=== PATIENT | female | born 1995 | race Caucasian/White ===

== ENCOUNTER 2018-12-21 02:09 | Inpatient (IN) | payer OTHER, MEDICAID ==
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
[2018-12-21 03:03] LABS: ABS Basophils 0 10^3/ul (0-0.2); ABS Eosinophils 0 10^3/ul (0-0.6); ABS Lymphocytes 1.2 10^3/ul (1.0-4.8); ABS Neutrophils 11.6 10^3/ul (1.5-7.7); ABS Nucleated RBC 0 10^3/ul; Eosinophil % 0.1 %; Hematocrit 40 % (35-47); Hemoglobin 13.4 g/dl (12.0-16.0); Lymphocyte % 8.8 %; Mean Corpuscular HGB Conc 34 g/dl (31-36); Mean Corpuscular Hemoglobin 29 pg (27-31); Mean Corpuscular Volume 88 fL (80-97); Mean Platelet Volume 7.1 fL (7.4-10.4); Nucleated Red Blood Cells % 0; Platelet Count 352 10^3/ul (150-450); Red Blood Count 4.58 10^6/ul (4.00-5.40); Red Cell Distribution Width 13 % (10.5-15); White Blood Count 13.9 10^3/ul (3.5-10.8)
[2018-12-21 03:26] LABS: ALT 19 U/L (7-52); AST 18 U/L (13-39); Albumin 4.3 g/dL (3.2-5.2); Albumin/Globulin Ratio 1.5 (1-3); Alkaline Phosphatase 54 U/L (34-104); Anion Gap 7 mmol/L (2-11); BUN/Creatinine Ratio 8.3 (8-20); Blood Urea Nitrogen 7 mg/dL (6-24); CO2 Carbon Dioxide 24 mmol/L (22-32); Calcium 9.1 mg/dL (8.6-10.3); Chloride 105 mmol/L (101-111); Creatine Kinase 67 U/L (10-223); EGFR African American 103.6 (>60); EGFR Non-African American 85.6 (>60); Globulin 2.9 g/dL (2-4); Glucose 108 mg/dL (70-100); Potassium 3.8 mmol/L (3.5-5.0); Sodium 136 mmol/L (135-145); Total Protein 7.2 g/dL (6.4-8.9)
[2018-12-21 03:31] LABS: HCG Pregnancy < 0.60 mIU/mL
[2018-12-21 03:34] LABS: Acetaminophen < 15 mcg/mL; Alcohol < 10 mg/dL (<10); Salicylate < 2.50 mg/dL (<30)
[2018-12-21 03:42] LABS: Barbiturates Urine Screen None Detected (None Detect); Benzodiazepine Urine Screen None Detected (None Detect); Urine Cannabinoids Screen None Detected (None Detect)
[2018-12-21 03:50] LABS: TSH (Thyroid Stimulating Horm) 1.58 mcIU/mL (0.34-5.60)
[2018-12-21 04:26] LABS: Urine Appearance Clear; Urine Bilirubin Negative (Negative); Urine Blood Negative (Negative); Urine Color Colorless; Urine Glucose Negative (Negative); Urine Ketones Negative (Negative); Urine Nitrite Negative (Negative); Urine Protein Negative (Negative); Urine Specific Gravity 1.001 (1.010-1.030); Urine Urobilinogen Negative (Negative)
[2018-12-21] MEDS ORDERED: Al Hydrox/Mg Hydrox/Simet LIQ* 30 ML UDC PO PRN (09:49)
[2018-12-21] MEDS: risperiDONE TAB* 1 MG PO SCH ×2 (11:04→20:24)
[2018-12-21] MEDS: diPHENhydraMINE PO* 50 MG PO PRN ×2 (13:06→20:24)
[2018-12-21] MEDS: Haloperidol TAB* 5 MG PO PRN ×2 (13:06→20:24)
[2018-12-21] MEDS: LORazepam TAB(*) 1 MG PO PRN ×2 (13:07→20:24)
--- NOTE | 2018-12-21 14:02 | ED ---
Progress - Progress Note Progress Note: Pt is a signout from Dr. Kinsey pending disposition. The pt has been diagnosed with psychosis, not otherwise specified. Course/Dx - Course Course Of Treatment: The pt is a signout from Dr. Kinsey pending dx. Her dx is psychosis, not otherwise specified. She will be sent home pending follow up. - Diagnoses Provider Diagnoses: Psychosis Discharge - Sign-Out/Discharge Documenting (check all that apply): Patient Departure - Discharge Plan Condition: Stable [place] [place] Attestation Statements Document Initiated by Scribe: Yes Documenting Scribe: Anusha Mckinney Provider For Whom Rebekaibe is Documenting (Include Credential): Shane Moyer MD. Scribe Attestation: Anusha Avelar, scribed for Shane Moyer MD. on 12/21/18 at 1404. Status of Scribe Document: Ready
[2018-12-22] MEDS: LORazepam TAB(*) 1 MG PO PRN ×2 (05:53→11:56)
[2018-12-22] MEDS: Haloperidol TAB* 5 MG PO PRN ×2 (05:53→11:55)
[2018-12-22] MEDS: risperiDONE TAB* 1 MG PO SCH ×2 (09:03→20:14)
[2018-12-22] MEDS: Acetaminophen TAB* 325 MG PO PRN (09:24)
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
[2018-12-22] MEDS: diPHENhydraMINE PO* 50 MG PO PRN ×2 (11:55→18:44)
[2018-12-22] MEDS ORDERED: risperiDONE-M * 1 MG TAB.ORADIS PO ONE (12:33)
[2018-12-22] MEDS ORDERED: Diazepam TAB(*) 5 MG PO ONE (12:36)
[2018-12-22] MEDS ORDERED: risperiDONE-M * 1 MG TAB.ORADIS ONE (12:37)
[2018-12-22] MEDS ORDERED: Diazepam TAB(*) 5 MG ONE (12:42)
[2018-12-22] MEDS ORDERED: Diazepam TAB(*) 5 MG PO PRN ×3 (14:41→21:00)
[2018-12-22] MEDS: Diazepam TAB(*) 5 MG PO PRN (20:14)
[2018-12-22] MEDS ORDERED: LORazepam INJ* 2 MG/ML 1 ML VIAL ONE (21:09)
[2018-12-22] MEDS ORDERED: LORazepam INJ* 2 MG/ML 1 ML VIAL IM ONE (21:17)
[2018-12-23] MEDS: diPHENhydraMINE PO* 50 MG PO PRN ×3 (05:15→18:50)
[2018-12-23] MEDS: Haloperidol TAB* 5 MG PO PRN ×3 (05:15→18:49)
[2018-12-23 07:36] LABS: HDL Cholesterol 47.4 mg/dL
[2018-12-23] MEDS: risperiDONE TAB* 1 MG PO SCH ×3 (08:03→21:40)
[2018-12-23] MEDS: Diazepam TAB(*) 5 MG PO PRN ×3 (08:03→23:34)
[2018-12-23] MEDS ORDERED: chlorproMAZINE TAB* 25 MG ONE (09:50)
[2018-12-23 11:00] LABS: Hepatitis C Antibody Nonreactive (Nonreactive)
[2018-12-23] MEDS ORDERED: chlorproMAZINE TAB* 25 MG PO ONE (12:23)
[2018-12-23] MEDS ORDERED: Diazepam TAB(*) 5 MG PO ONE (15:05)
--- NOTE | 2018-12-23 15:16 | PN ---
Subjective - Subjective Date of Service: 12/23/18 Service Type: 08515 Hosp care 35 min high complexity Subjective: The patient was seen in the quiet room screaming do not touch me. Last night she naked and masturbating in the green room. She was seen walking around the unit screaming. Her sister visited yesterday and provided sound collateral history. She has been compliant with medications. It appears that she is responding to internal stimuli. She was unable to participate in encounter. Objective - Appearance Appearance: Healthy Appearing Dysmorphic Features: No Grooming: Disheveled - Behavior Psychomotor Activities: Abnormal-Increased Exhibits Abnormal Movement: No - Attitude and Relatedness Attitude and Relatedness: Regressed Eye Contact: Poor - Speech Quality: Unpressured Latencies: Short Quantity: Copious - Mood Patient's Decription of Mood: "Irritable" - Affect Observed Affect: Euphoric Affect Consistent with: Euphoria - Thought Process Patient's Thought Process: Disorganized Thought Content: Yes Paranoid Ideation, No Passive Wish, No Suicidal Planning, No Homicidal Ideation - Sensorium Experiencing Hallucinations: Yes Type of Hallucinations: Visual: Yes, Auditory: Yes, Command: Yes - Level of Consciousness Level of Consciousness: Agitated Orientation: Yes Intact, Yes Orientated to Time, Yes Orientated to Place, Yes Orientated to Person - Impulse Control Impulse Control: Impaired - Insight and Judgement Insight and Judgement: Impaired - Group Participation Particating in Group Activities: No - Medication Management Medication Management Adherence: Yes Assessment - Assessment Merits Inpatient Hospitalization: For Immediate Safety Clinical Impression: 23 year old female with a history of schizoaffective disorder, presents with recent LSD intoxication and acute psychosis Plan - Plan Treatment Plan: Name: WAQAS BROWER Birthdate: 1995 [id number] # 9.39 The patient requires inpatient admission at this time to assure safety, receive treatment and work toward stabilization. #Constant observation. # Obtain baseline from collateral information once release is signed. # HIV, Syphilis, Hepatitis and HSV AB insignificant # Dark room with minimal stimuli #Continue to monitor vital signs. Patient is hyperactive and pacing around unit Offered Substance Abuse resources #Goals before discharge include: Medication compliance. Acetaminophen (Tylenol Tab*) 650 mg PO Q4H PRN PRN Reason: for pain; or Temp >101 F Last Admin: 12/22/18 09:24 Dose: 650 mg Al Hydrox/Mg Hydrox/Simethicone (Maalox Plus*) 30 ml PO Q4H PRN PRN Reason: INDIGESTION Diazepam (Valium Tab(*)) 5 mg PO Q8H PRN PRN Reason: ANXIETY Last Admin: 12/23/18 08:03 Dose: 5 mg Diazepam (Valium Tab(*)) 5 mg PO ONCE ONE Stop: 12/23/18 15:06 Diphenhydramine HCl (Benadryl Po*) 50 mg PO Q6H PRN PRN Reason: AGITATION Last Admin: 12/23/18 11:30 Dose: 50 mg Haloperidol (Haldol Tab*) 5 mg PO Q6H PRN PRN Reason: AGITATION Last Admin: 12/23/18 11:29 Dose: 5 mg Risperidone (Risperdal*) 2 mg PO BID [facility] Last Admin: 12/23/18 08:03 Dose: 2 mg Sodium 136 mmol/L (135-145) 12/21/18 02:51 Potassium 3.8 mmol/L (3.5-5.0) 12/21/18 02:51 BUN 7 mg/dL (6-24) 12/21/18 02:51 Creatinine 0.84 mg/dL (0.51-0.95) 12/21/18 02:51 Hemoglobin A1c 5.4 % (4.0-5.6) 12/23/18 06:45 Calcium 9.1 mg/dL (8.6-10.3) 12/21/18 02:51 AST 18 U/L (13-39) 12/21/18 02:51 ALT 19 U/L (7-52) 12/21/18 02:51 Triglycerides 78 mg/dL 12/23/18 06:45 Cholesterol 162 mg/dL 12/23/18 06:45 LDL Cholesterol 99 mg/dL 12/23/18 06:45 Vital Signs Temp Pulse Resp BP Pulse Ox 100.0 F 142 16 118/86 99 12/21/18 12:53 12/23/18 15:12 12/23/18 13:48 12/23/18 15:12 12/21/18 12:53 Continued Medication Management: Continue Outpt Medication Medications: Current Medications Acetaminophen (Tylenol Tab*) 650 mg PO Q4H PRN PRN Reason: for pain; or Temp >101 F Last Admin: 12/22/18 09:24 Dose: 650 mg Al Hydrox/Mg Hydrox/Simethicone (Maalox Plus*) 30 ml PO Q4H PRN PRN Reason: INDIGESTION Diazepam (Valium Tab(*)) 5 mg PO Q8H PRN PRN Reason: ANXIETY Last Admin: 12/23/18 08:03 Dose: 5 mg Diazepam (Valium Tab(*)) 5 mg PO ONCE ONE Stop: 12/23/18 15:06 Diphenhydramine HCl (Benadryl Po*) 50 mg PO Q6H PRN PRN Reason: AGITATION Last Admin: 12/23/18 11:30 Dose: 50 mg Haloperidol (Haldol Tab*) 5 mg PO Q6H PRN PRN Reason: AGITATION Last Admin: 12/23/18 11:29 Dose: 5 mg Risperidone (Risperdal*) 2 mg PO BID JONATHAN Last Admin: 12/23/18 08:03 Dose: 2 mg - Discharge Plan Discharge Plan: Inpatient Hospitalization
[2018-12-24] MEDS: Haloperidol TAB* 5 MG PO PRN ×4 (01:11→15:30)
[2018-12-24] MEDS: diPHENhydraMINE PO* 50 MG PO PRN ×4 (01:12→15:30)
[2018-12-24] MEDS ORDERED: Haloperidol TAB* 5 MG PO ONE (02:14)
[2018-12-24] MEDS ORDERED: diPHENhydraMINE PO* 50 MG PO ONE (02:14)
[2018-12-24] MEDS: Diazepam TAB(*) 5 MG PO PRN (07:37)
[2018-12-24] MEDS: risperiDONE TAB* 1 MG PO SCH ×4 (07:37→19:21)
[2018-12-24] MEDS ORDERED: risperiDONE TAB* 1 MG PO ONE (10:30)
[2018-12-24] MEDS ORDERED: risperiDONE TAB* 1 MG ONE (10:42)
[2018-12-24] MEDS ORDERED: chlorproMAZINE TAB* 50 MG ONE (11:22)
--- NOTE | 2018-12-24 14:52 | PN ---
Subjective - Subjective Date of Service: 12/24/18 Service Type: 14677 Hosp care 35 min high complexity Subjective: CC:" Leave me alone" The patient was seen in the hallway yelling "do not touch me". She was placed in the quiet room. She has been compliant with medications. It appears that she is responding to internal stimuli. She was unable to participate in encounter in a meaningful. No side effects from medications. Objective - Appearance Dysmorphic Features: No Hygiene: Dirty Grooming: Disheveled - Behavior Psychomotor Activities: Abnormal-Increased - Attitude and Relatedness Attitude and Relatedness: Psychotically Related Eye Contact: Poor - Speech Quality: Unpressured Latencies: Long Quantity: Terse - Mood Patient's Decription of Mood: "Sad" - Affect Observed Affect: Labile Affect Consistent with: Dysphoria - Thought Process Patient's Thought Process: Disorganized Thought Content: Yes Paranoid Ideation, No Passive Wish, No Suicidal Planning, No Homicidal Ideation - Sensorium Experiencing Hallucinations: Yes Type of Hallucinations: Visual: Yes, Auditory: Yes, Command: Yes - Level of Consciousness Level of Consciousness: Agitated Orientation: Yes Intact, Yes Orientated to Time, Yes Orientated to Place, Yes Orientated to Person - Impulse Control Impulse Control: Impaired - Insight and Judgement Insight and Judgement: Impaired - Group Participation Particating in Group Activities: No - Medication Management Medication Management Adherence: Yes Assessment - Assessment Clinical Impression: 23 year old female with a history of schizoaffective disorder, presents with recent LSD intoxication and acute psychosis Plan - Plan Treatment Plan: Name: WAQAS BROWER Birthdate: 1995 [id number] # 9.39 The patient requires inpatient admission at this time to assure safety, receive treatment and work toward stabilization. #Constant observation # Obtain baseline from collateral information once release is signed. # Dark room with minimal stimuli #Continue to monitor vital signs. Patient is hyperactive and pacing around unit Offered Substance Abuse resources #Goals before discharge include: Medication compliance. Acetaminophen (Tylenol Tab*) 650 mg PO Q4H PRN PRN Reason: for pain; or Temp >101 F Last Admin: 12/22/18 09:24 Dose: 650 mg Al Hydrox/Mg Hydrox/Simethicone (Maalox Plus*) 30 ml PO Q4H PRN PRN Reason: INDIGESTION Diazepam (Valium Tab(*)) 5 mg PO Q8H PRN PRN Reason: ANXIETY Last Admin: 12/23/18 08:03 Dose: 5 mg Diazepam (Valium Tab(*)) 5 mg PO ONCE ONE Stop: 12/23/18 15:06 Diphenhydramine HCl (Benadryl Po*) 50 mg PO Q6H PRN PRN Reason: AGITATION Last Admin: 12/23/18 11:30 Dose: 50 mg Haloperidol (Haldol Tab*) 5 mg PO Q6H PRN PRN Reason: AGITATION Last Admin: 12/23/18 11:29 Dose: 5 mg Risperidone (Risperdal*) 2 mg PO BID JONATHAN Last Admin: 12/23/18 08:03 Dose: 2 mg Sodium 136 mmol/L (135-145) 12/21/18 02:51 Potassium 3.8 mmol/L (3.5-5.0) 12/21/18 02:51 BUN 7 mg/dL (6-24) 12/21/18 02:51 Creatinine 0.84 mg/dL (0.51-0.95) 12/21/18 02:51 Hemoglobin A1c 5.4 % (4.0-5.6) 12/23/18 06:45 Calcium 9.1 mg/dL (8.6-10.3) 12/21/18 02:51 AST 18 U/L (13-39) 12/21/18 02:51 ALT 19 U/L (7-52) 12/21/18 02:51 Triglycerides 78 mg/dL 12/23/18 06:45 Cholesterol 162 mg/dL 12/23/18 06:45 LDL Cholesterol 99 mg/dL 12/23/18 06:45 Vital Signs Temp Pulse Resp BP Pulse Ox 100.0 F 142 16 118/86 99 12/21/18 12:53 12/23/18 15:12 12/23/18 13:48 12/23/18 15:12 12/21/18 12:53 Continued Medication Management: Continue Outpt Medication Medications: Current Medications Acetaminophen (Tylenol Tab*) 650 mg PO Q4H PRN PRN Reason: for pain; or Temp >101 F Last Admin: 12/22/18 09:24 Dose: 650 mg Al Hydrox/Mg Hydrox/Simethicone (Maalox Plus*) 30 ml PO Q4H PRN PRN Reason: INDIGESTION Diphenhydramine HCl (Benadryl Po*) 50 mg PO Q6H PRN PRN Reason: AGITATION Last Admin: 12/24/18 08:05 Dose: 50 mg Haloperidol (Haldol Tab*) 5 mg PO Q6H PRN PRN Reason: AGITATION Last Admin: 12/24/18 08:05 Dose: 5 mg Lorazepam (Ativan Tab(*)) 1 mg PO Q6H PRN PRN Reason: ANXIETY Risperidone (Risperdal*) 3 mg PO BID [facility] Last Admin: 12/24/18 10:27 Dose: Not Given - Discharge Plan Discharge Plan: Inpatient Hospitalization
[2018-12-24 15:12] LABS: Herpes Simplex Virus I IgG AB Positive (Negative); Herpes Simplex Virus II IgG AB Negative (Negative)
[2018-12-24] MEDS ORDERED: Zolpidem TAB* 5 MG PO ONE (15:23)
[2018-12-24] MEDS: LORazepam TAB(*) 1 MG PO PRN (15:30)
[2018-12-24] MEDS ORDERED: diPHENhydraMINE IV* 50 MG/ML 1 ml VIAL (BENADRYL) IM ONE (23:23)
[2018-12-24] MEDS ORDERED: LORazepam INJ* 2 MG/ML 1 ML VIAL IM ONE (23:23)
[2018-12-24] MEDS ORDERED: Haloperidol INJ IV/IM* 5 MG/ML AMP IM ONE (23:23)
[2018-12-24] MEDS ORDERED: diPHENhydraMINE IV* 50 MG/ML 1 ml VIAL (BENADRYL) ONE (23:26)
[2018-12-24] MEDS ORDERED: Haloperidol INJ IV/IM* 5 MG/ML AMP ONE (23:26)
[2018-12-25] MEDS: risperiDONE TAB* 1 MG PO SCH ×2 (07:58→19:18)
[2018-12-25] MEDS: diPHENhydraMINE PO* 50 MG PO PRN ×2 (10:02→23:19)
[2018-12-25] MEDS: Haloperidol TAB* 5 MG PO PRN ×2 (10:02→23:19)
[2018-12-25] MEDS: LORazepam TAB(*) 1 MG PO PRN ×2 (10:03→23:20)
--- NOTE | 2018-12-25 11:28 | PN ---
Subjective - Subjective Date of Service: 12/25/18 Service Type: [id number] Hosp care 35 min high complexity Subjective: CC:" Is the earth gone? " The patient was seen in the hallway [facility]. She was observed at the nursing station. She has been mostly compliant with medications. It appears that she is responding to internal stimuli. Patient continues to be unable to participate in encounter in a meaningful way. No side effects from medications. Objective - Appearance Appearance: Thin Framed Dysmorphic Features: No Hygiene: Dirty Grooming: Disheveled - Behavior Psychomotor Activities: Abnormal-Increased Exhibits Abnormal Movement: No - Attitude and Relatedness Attitude and Relatedness: Child Like Eye Contact: Poor - Speech Quality: Unpressured Latencies: Long Quantity: Terse - Mood Patient's Decription of Mood: "Upset" - Affect Observed Affect: Labile Affect Consistent with: Dysphoria - Thought Process Patient's Thought Process: Incoherent Thought Content: Yes Paranoid Ideation, No Passive Wish, No Suicidal Planning, No Homicidal Ideation - Sensorium Experiencing Hallucinations: Yes Type of Hallucinations: Visual: Yes, Auditory: Yes, Command: Yes - Level of Consciousness Level of Consciousness: Obtunded Orientation: No Intact, No Orientated to Time, No Orientated to Place, No Orientated to Person - Impulse Control Impulse Control: Impaired - Insight and Judgement Insight and Judgement: Impaired - Group Participation Particating in Group Activities: No - Medication Management Medication Management Adherence: Partial Assessment - Assessment Clinical Impression: 23 year old female with a history of schizoaffective disorder, presents with recent LSD intoxication and acute psychosis Plan - Plan Treatment Plan: Name: WAQAS BROWER Birthdate: 1995 [id number] # 9.39 The patient requires inpatient admission at this time to assure safety, receive treatment and work toward stabilization. #Constant observation # Obtain baseline from collateral information once release is signed. # Dark room with minimal stimuli #Continue to monitor vital signs. Offered Substance Abuse resources #Start to taper down benzos as patient is showing disinhibited effect. Today patient shows a increased capacity to be redirected. #Goals before discharge include: decrease psychosis and maintain safety Sodium 136 mmol/L (135-145) 12/21/18 02:51 Potassium 3.8 mmol/L (3.5-5.0) 12/21/18 02:51 BUN 7 mg/dL (6-24) 12/21/18 02:51 Creatinine 0.84 mg/dL (0.51-0.95) 12/21/18 02:51 Hemoglobin A1c 5.4 % (4.0-5.6) 12/23/18 06:45 Calcium 9.1 mg/dL (8.6-10.3) 12/21/18 02:51 AST 18 U/L (13-39) 12/21/18 02:51 ALT 19 U/L (7-52) 12/21/18 02:51 Triglycerides 78 mg/dL 12/23/18 06:45 Cholesterol 162 mg/dL 12/23/18 06:45 LDL Cholesterol 99 mg/dL 12/23/18 06:45 Vital Signs Temp Pulse Resp BP Pulse Ox 100.0 F 142 16 118/86 99 12/21/18 12:53 12/23/18 15:12 12/25/18 10:03 12/23/18 15:12 12/21/18 12:53 Acetaminophen (Tylenol Tab*) 650 mg PO Q4H PRN PRN Reason: for pain; or Temp >101 F Last Admin: 12/22/18 09:24 Dose: 650 mg Al Hydrox/Mg Hydrox/Simethicone (Maalox Plus*) 30 ml PO Q4H PRN PRN Reason: INDIGESTION Diphenhydramine HCl (Benadryl Po*) 50 mg PO Q6H PRN PRN Reason: AGITATION Last Admin: 12/25/18 10:02 Dose: 50 mg Haloperidol (Haldol Tab*) 5 mg PO Q6H PRN PRN Reason: AGITATION Last Admin: 12/25/18 10:02 Dose: 5 mg Lorazepam (Ativan Tab(*)) 1 mg PO Q6H PRN PRN Reason: ANXIETY Last Admin: 12/25/18 10:03 Dose: 1 mg Risperidone (Risperdal*) 3 mg PO BID JONATHAN Last Admin: 12/25/18 07:58 Dose: 2 mg Continued Medication Management: Start Medication Medications: Current Medications Acetaminophen (Tylenol Tab*) 650 mg PO Q4H PRN PRN Reason: for pain; or Temp >101 F Last Admin: 12/22/18 09:24 Dose: 650 mg Al Hydrox/Mg Hydrox/Simethicone (Maalox Plus*) 30 ml PO Q4H PRN PRN Reason: INDIGESTION Diphenhydramine HCl (Benadryl Po*) 50 mg PO Q6H PRN PRN Reason: AGITATION Last Admin: 12/25/18 10:02 Dose: 50 mg Haloperidol (Haldol Tab*) 5 mg PO Q6H PRN PRN Reason: AGITATION Last Admin: 12/25/18 10:02 Dose: 5 mg Lorazepam (Ativan Tab(*)) 1 mg PO Q6H PRN PRN Reason: ANXIETY Last Admin: 12/25/18 10:03 Dose: 1 mg Risperidone (Risperdal*) 3 mg PO BID JONATHAN Last Admin: 12/25/18 07:58 Dose: 2 mg - Discharge Plan Discharge Plan: Inpatient Hospitalization
[2018-12-25] MEDS ORDERED: Haloperidol INJ IV/IM* 5 MG/ML AMP ONE (16:07)
[2018-12-25] MEDS ORDERED: LORazepam INJ* 2 MG/ML 1 ML VIAL ONE (16:07)
[2018-12-25] MEDS ORDERED: diPHENhydraMINE IV* 50 MG/ML 1 ml VIAL (BENADRYL) ONE (16:08)
[2018-12-25] MEDS ORDERED: diPHENhydraMINE IV* 50 MG/ML 1 ml VIAL (BENADRYL) IM ONE (16:10)
[2018-12-25] MEDS ORDERED: LORazepam INJ* 2 MG/ML 1 ML VIAL IM ONE (16:10)
[2018-12-25] MEDS ORDERED: Haloperidol INJ IV/IM* 5 MG/ML AMP IM ONE (16:10)
[2018-12-26] MEDS: risperiDONE TAB* 1 MG PO SCH ×2 (08:15→21:22)
[2018-12-26] MEDS: LORazepam TAB(*) 1 MG PO PRN (08:46)
[2018-12-26] MEDS: diPHENhydraMINE PO* 50 MG PO PRN ×3 (08:47→21:23)
[2018-12-26] MEDS: Haloperidol TAB* 5 MG PO PRN ×3 (09:50→21:22)
--- NOTE | 2018-12-26 17:38 | PN ---
Subjective - Subjective Date of Service: 12/26/18 Service Type: [id number] Hosp care 25 min moderate complexity Subjective: Waqas continues to disorganized in her thoughts and behaviors. [facility] Stands by the nurses' station or paces around internally preoccupied and responding to internal stimuli. Over all an unreliable historian. Objective - Appearance Appearance: Healthy Appearing, Thin Framed Dysmorphic Features: No Hygiene: Mal-odorous Grooming: Disheveled - Behavior Psychomotor Activities: Abnormal-Increased Exhibits Abnormal Movement: No - Attitude and Relatedness Attitude and Relatedness: Psychotically Related Eye Contact: Fair - Speech Quality: Unpressured Latencies: Long Quantity: Terse - Mood Patient's Decription of Mood: "Upset" - Affect Observed Affect: Constricted Affect Consistent with: Dysphoria - Thought Process Patient's Thought Process: Disorganized, Loose Associations, Tangential, Impoverished Thought Content: No Passive Wish, No Suicidal Planning, No Homicidal Ideation, No Paranoid Ideation - Sensorium Experiencing Hallucinations: Yes Type of Hallucinations: Visual: No, Auditory: No, Command: Yes - Level of Consciousness Level of Consciousness: Alert Orientation: No Intact, No Orientated to Time, No Orientated to Place, No Orientated to Person - Impulse Control Impulse Control: Impaired - Insight and Judgement Insight and Judgement: Impaired - Group Participation Particating in Group Activities: No - Medication Management Medication Management Adherence: Yes Assessment - Assessment Merits Inpatient Hospitalization: For Immediate Safety, For Stabilization, Pending Safe DC Plan Clinical Impression: 23 year old female with a history of schizoaffective disorder, presents with recent LSD intoxication and acute psychosis Plan - Plan Treatment Plan: Name: WAQAS BROWER Birthdate: 1995 [id number] # 9.39 The patient requires inpatient admission at this time to assure safety, receive treatment and work toward stabilization. #Constant observation # Obtain baseline from collateral information once release is signed. # Dark room with minimal stimuli #Continue to monitor vital signs. Offered Substance Abuse resources #Start to taper down benzos as patient is showing disinhibited effect. Today patient shows a increased capacity to be redirected. #Goals before discharge include: decrease psychosis and maintain safety Sodium 136 mmol/L (135-145) 12/21/18 02:51 Potassium 3.8 mmol/L (3.5-5.0) 12/21/18 02:51 BUN 7 mg/dL (6-24) 12/21/18 02:51 Creatinine 0.84 mg/dL (0.51-0.95) 12/21/18 02:51 Hemoglobin A1c 5.4 % (4.0-5.6) 12/23/18 06:45 Calcium 9.1 mg/dL (8.6-10.3) 12/21/18 02:51 AST 18 U/L (13-39) 12/21/18 02:51 ALT 19 U/L (7-52) 12/21/18 02:51 Triglycerides 78 mg/dL 12/23/18 06:45 Cholesterol 162 mg/dL 12/23/18 06:45 LDL Cholesterol 99 mg/dL 12/23/18 06:45 Vital Signs Temp Pulse Resp BP Pulse Ox 100.0 F 142 16 118/86 99 12/21/18 12:53 12/23/18 15:12 12/25/18 10:03 12/23/18 15:12 12/21/18 12:53 Acetaminophen (Tylenol Tab*) 650 mg PO Q4H PRN PRN Reason: for pain; or Temp >101 F Last Admin: 12/22/18 09:24 Dose: 650 mg Al Hydrox/Mg Hydrox/Simethicone (Maalox Plus*) 30 ml PO Q4H PRN PRN Reason: INDIGESTION Diphenhydramine HCl (Benadryl Po*) 50 mg PO Q6H PRN PRN Reason: AGITATION Last Admin: 12/25/18 10:02 Dose: 50 mg Haloperidol (Haldol Tab*) 5 mg PO Q6H PRN PRN Reason: AGITATION Last Admin: 12/25/18 10:02 Dose: 5 mg Lorazepam (Ativan Tab(*)) 1 mg PO Q6H PRN PRN Reason: ANXIETY Last Admin: 12/25/18 10:03 Dose: 1 mg Risperidone (Risperdal*) 3 mg PO BID JONATHAN Last Admin: 12/25/18 07:58 Dose: 2 mg Continued Medication Management: Continue Outpt Medication Medications: Current Medications Acetaminophen (Tylenol Tab*) 650 mg PO Q4H PRN PRN Reason: for pain; or Temp >101 F Last Admin: 12/22/18 09:24 Dose: 650 mg Al Hydrox/Mg Hydrox/Simethicone (Maalox Plus*) 30 ml PO Q4H PRN PRN Reason: INDIGESTION Diphenhydramine HCl (Benadryl Po*) 50 mg PO Q6H PRN PRN Reason: AGITATION Last Admin: 12/26/18 15:02 Dose: 50 mg Haloperidol (Haldol Tab*) 5 mg PO Q6H PRN PRN Reason: AGITATION Last Admin: 12/26/18 15:02 Dose: 5 mg Lorazepam (Ativan Tab(*)) 1 mg PO Q6H PRN PRN Reason: ANXIETY Last Admin: 12/26/18 08:46 Dose: 1 mg Risperidone (Risperdal*) 3 mg PO BID JONATHAN Last Admin: 12/26/18 08:15 Dose: 3 mg - Discharge Plan Discharge Plan: Outpatient Follow Up Outpatient Program: [facility]
[2018-12-26] MEDS ORDERED: Magic Mouth Was-BEN/MAAL/LIDO SWISH SPIT PRN (18:20)
[2018-12-27] MEDS: diPHENhydraMINE IV* 50 MG/ML 1 ml VIAL (BENADRYL) ONE ×2 (07:00→12:49)
[2018-12-27] MEDS: Haloperidol INJ IV/IM* 5 MG/ML AMP ONE ×2 (07:00→12:50)
[2018-12-27] MEDS: Haloperidol TAB* 5 MG PO PRN (10:05)
[2018-12-27] MEDS: diPHENhydraMINE PO* 50 MG PO PRN (10:05)
[2018-12-27] MEDS: risperiDONE TAB* 1 MG PO SCH ×3 (10:27→20:09)
[2018-12-27] MEDS: LORazepam TAB(*) 1 MG PO PRN (11:37)
[2018-12-27] MEDS ORDERED: chlorproMAZINE INJ* 25 MG/ML 2 ML (50 MG) IM ONE (12:00)
[2018-12-27] MEDS ORDERED: chlorproMAZINE TAB* 50 MG ONE (15:19)
[2018-12-27] MEDS ORDERED: chlorproMAZINE TAB* 50 MG PO PRN (15:21)
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
[2018-12-28] MEDS: risperiDONE TAB* 1 MG PO SCH ×2 (21:20→21:21)
[2018-12-29] MEDS: Acetaminophen TAB* 325 MG PO PRN (04:10)
[2018-12-29] MEDS: LORazepam TAB(*) 1 MG PO PRN (10:26)
[2018-12-29] MEDS: Haloperidol TAB* 5 MG PO PRN (10:27)
--- NOTE | 2018-12-29 13:00 | PN ---
Subjective - Subjective Date of Service: 12/29/18 Service Type: 54824 Hosp care 35 min high complexity Subjective: Per nursing report patient has been disorganized and yelling in the hallways . CC:" Hi " Patient was seen in the morning eating breakfast. She was unable to participate in the interview in a meaningful way. Per staff she slept 4 hours and has been attention seeking. No side effects from medications. Objective - Appearance Appearance: Healthy Appearing Dysmorphic Features: No Hygiene: Dirty Grooming: Disheveled - Behavior Psychomotor Activities: Abnormal-Increased Exhibits Abnormal Movement: No - Attitude and Relatedness Attitude and Relatedness: Child Like Eye Contact: Fair - Speech Quality: Unpressured Latencies: Long Quantity: Terse - Mood Patient's Decription of Mood: "Irritable" - Affect Observed Affect: Tense Affect Consistent with: Dysphoria - Thought Process Patient's Thought Process: Disorganized Thought Content: Yes Paranoid Ideation, No Passive Wish, No Suicidal Planning, No Homicidal Ideation - Sensorium Experiencing Hallucinations: Yes Type of Hallucinations: Visual: Yes, Auditory: Yes, Command: No - Level of Consciousness Level of Consciousness: Agitated Orientation: No Intact, No Orientated to Time, No Orientated to Place, No Orientated to Person - Impulse Control Impulse Control: Impaired - Insight and Judgement Insight and Judgement: Impaired - Group Participation Particating in Group Activities: No - Medication Management Medication Management Adherence: Partial Assessment - Assessment Clinical Impression: 23 year old female with a history of schizoaffective disorder, presents with recent LSD intoxication and acute psychosis Plan - Plan Treatment Plan: Name: WAQAS BROWER Birthdate: 1995 [id number] # 9.39 The patient requires inpatient admission at this time to assure safety, receive treatment and work toward stabilization. #Q15 minute observation # Dark room with minimal stimuli # Decrease risperdal to 2mg BID #Awaiting Retention hearing court date #Limit use of Benadryl and Thorazine to minimize anti- cholinergic load and if possible limit amount of benzodiazepines used. # Use Haldol and if needed ativan for PRNS #HSV1 positive nonspecific curbside consult to medicine was made and suggested outpatient follow up #EEG ordered once patient is able engage in procedure #Goals before discharge include: decrease psychosis and maintain safety Sodium 136 mmol/L (135-145) 12/21/18 02:51 Potassium 3.8 mmol/L (3.5-5.0) 12/21/18 02:51 BUN 7 mg/dL (6-24) 12/21/18 02:51 Creatinine 0.84 mg/dL (0.51-0.95) 12/21/18 02:51 Hemoglobin A1c 5.4 % (4.0-5.6) 12/23/18 06:45 Calcium 9.1 mg/dL (8.6-10.3) 12/21/18 02:51 AST 18 U/L (13-39) 12/21/18 02:51 ALT 19 U/L (7-52) 12/21/18 02:51 Triglycerides 78 mg/dL 12/23/18 06:45 Cholesterol 162 mg/dL 12/23/18 06:45 LDL Cholesterol 99 mg/dL 12/23/18 06:45 Vital Signs Temp Pulse Resp BP Pulse Ox 98.5 F 111 16 127/73 98 12/26/18 07:43 12/26/18 07:43 12/29/18 12:31 12/26/18 07:43 12/26/18 07:43 Continued Medication Management: Continue Outpt Medication Medications: Current Medications Acetaminophen (Tylenol Tab*) 650 mg PO Q4H PRN PRN Reason: for pain; or Temp >101 F Last Admin: 12/29/18 04:10 Dose: 650 mg Al Hydrox/Mg Hydrox/Simethicone (Maalox Plus*) 30 ml PO Q4H PRN PRN Reason: INDIGESTION Haloperidol (Haldol Tab*) 5 mg PO Q6H PRN PRN Reason: AGITATION Last Admin: 12/29/18 10:27 Dose: 5 mg Lorazepam (Ativan Tab(*)) 1 mg PO Q6H PRN PRN Reason: ANXIETY Last Admin: 12/29/18 10:26 Dose: 1 mg Multi-Ingredient Mouthwash/Gargle (Magic Mouth Was-Darrel/Maal/Lido*) 5 ml SWISH SPIT Q8H PRN PRN Reason: PAIN/DISCOMFORT Risperidone (Risperdal*) 2 mg PO BID JONATHAN - Discharge Plan Discharge Plan: Inpatient Hospitalization
[2018-12-29] MEDS ORDERED: Benztropine TAB* 1 MG PO ONE (17:18)
[2018-12-29] MEDS ORDERED: Benztropine TAB* 1 MG ONE (17:21)
[2018-12-29] MEDS ORDERED: diPHENhydraMINE PO* 50 MG ONE (17:41)
[2018-12-29] MEDS ORDERED: diPHENhydraMINE PO* 50 MG PO ONE (17:43)
[2018-12-29] MEDS ORDERED: diPHENhydraMINE IV* 50 MG/ML 1 ml VIAL (BENADRYL) IM ONE ×2 (18:51→19:12)
[2018-12-29] MEDS ORDERED: diPHENhydraMINE IV* 50 MG/ML 1 ml VIAL (BENADRYL) ONE (18:53)
[2018-12-29] MEDS ORDERED: risperiDONE TAB* 2 MG PO SCH (21:00)
[2018-12-29] MEDS ORDERED: Benztropine TAB* 1 MG PO SCH (21:00)
[2018-12-29 23:34] VITALS: BP 123/60
[2018-12-29] MEDS ORDERED: NS 0.9% 1000 ML** 1,000 ML IV SCH ×2 (23:45→23:56)
[2018-12-29 23:52] LABS: BUN/Creatinine Ratio 19.2 (8-20); Calcium 8.8 mg/dL (8.6-10.3); EGFR African American 121.8 (>60); EGFR Non-African American 100.6 (>60); Potassium 3.9 mmol/L (3.5-5.0)
[2018-12-29] MEDS ORDERED: NS 0.9% 1000 ML** 2,000 ML IV ONE (23:56)
--- NOTE | 2018-12-30 11:09 | DS ---
Treatment Course & Assessment Clinical Course & Impression: 23 year old female with a history of schizoaffective disorder, presents with recent LSD intoxication and acute psychosis Discharge Planning - Discharge Planning Discharge Planning: Prescriptions provided for discharge [] Yes [] No Follow up care details as per social work arrangements. Patient response to discharge plan: [] eager for discharge [] agreeable with discharge plan [] ambivalent about discharge [] disagrees with discharge today
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
== END 2018-12-30 00:15 | disposition short-term general hospital (02) | DRG 897 ==
LOC: ED 02:09 → BSU 09:49
PROVIDERS: ADMIT Psychiatry & Neurology Psychiatry; ATTEND Psychiatry & Neurology Psychiatry
DX: F16.951 Hallucinogen use, unspecified with hallucinogen-induced psychotic disorder with hallucinations (principal); F25.9 Schizoaffective disorder, unspecified; F16.929 Hallucinogen use, unspecified with intoxication, unspecified; Z62.812 Personal history of neglect in childhood; Z81.8 Family history of other mental and behavioral disorders; Z81.1 Family history of alcohol abuse and dependence
CPT/HCPCS: 36415; 80048; 80053; 80061; 80307; 80320; 80329; 81003; 82550; 83036; 84443; 84702; 85025; 86592; 86695; 86696; 86703; 86803; 93005; 95819; 99222; 99232; 99233; 99285; A9270-GY; G0480; J1200; J1630; J2060

== ENCOUNTER 2018-12-30 00:15 | Observation (INO) | payer OTHER, MEDICAID ==
[2018-12-30] MEDS ORDERED: Acetaminophen TAB* 325 MG PO PRN (01:18)
[2018-12-30] MEDS ORDERED: LORazepam TAB(*) 1 MG PO PRN (01:20)
[2018-12-30] MEDS ORDERED: Al Hydrox/Mg Hydrox/Simet LIQ* 30 ML UDC PO PRN (01:20)
[2018-12-30] MEDS: NS 0.9% 1000 ML** 2,000 ML IV ONE ×2 (01:59→03:08)
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
[2018-12-30] MEDS: NS 0.9% 1000 ML** 1,000 ML IV SCH ×3 (05:30→23:26)
[2018-12-30 06:13] LABS: Urine Appearance Cloudy; Urine Bacteria Absent (Absent); Urine Bilirubin Negative (Negative); Urine Blood Negative (Negative); Urine Color Yellow; Urine Glucose Negative (Negative); Urine Ketones 1+ (Negative); Urine Nitrite Negative (Negative); Urine Protein Negative (Negative); Urine Red Blood Cell 2+(6-10/hpf) (Absent); Urine Specific Gravity 1.018 (1.010-1.030); Urine Urobilinogen Negative (Negative); Urine White Blood Cell 1+(6-10/hpf) (Absent)
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
[2018-12-30] MEDS: Benztropine TAB* 1 MG PO SCH ×2 (09:50→22:13)
[2018-12-30] MEDS: Magic Mouth Was-BEN/MAAL/LIDO SWISH SPIT SCH ×4 (09:51→22:15)
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
[2018-12-30 12:50] LABS: ABS Basophils 0.1 10^3/ul (0-0.2); ABS Eosinophils 0 10^3/ul (0-0.6); ABS Lymphocytes 1.6 10^3/ul (1.0-4.8); ABS Monocytes 1.4 10^3/ul (0-0.8); ABS Neutrophils 11.4 10^3/ul (1.5-7.7); ABS Nucleated RBC 0 10^3/ul; Eosinophil % 0.2 %; Hematocrit 37 % (35-47); Hemoglobin 12.1 g/dl (12.0-16.0); Lymphocyte % 10.9 %; Mean Corpuscular HGB Conc 33 g/dl (31-36); Mean Corpuscular Hemoglobin 30 pg (27-31); Mean Corpuscular Volume 89 fL (80-97); Mean Platelet Volume 7.5 fL (7.4-10.4); Nucleated Red Blood Cells % 0; Platelet Count 307 10^3/ul (150-450); Red Cell Distribution Width 13 % (10.5-15); White Blood Count 14.5 10^3/ul (3.5-10.8)
[2018-12-30 13:40] LABS: BUN/Creatinine Ratio 9.1 (8-20); Calcium 8.3 mg/dL (8.6-10.3); EGFR African American 168.8 (>60); EGFR Non-African American 139.5 (>60); Potassium 3.5 mmol/L (3.5-5.0)
--- NOTE | 2018-12-30 14:30 | EEG ---
ELECTROENCEPHALOGRAPHY: DATE OF STUDY: 12/30/18 REFERRING PHYSICIAN: Dr. Tirado. LOCATION: She is an inpatient, room 437. CLINICAL HISTORY: The patient presented to the emergency room on 12/21/18 with delusions. She was admitted to the mental health unit, but was yelling in the hallways and very disorganized. She became less responsive and was concerned of either medication side effects or some other medical illness. Current medications consist of lorazepam and Cogentin. REPORT: This 16-channel EEG is remarkable for background rhythms at the onset of the tracing consisting of a well-formed alpha rhythm in the posterior derivations at 9.5 cycles per second, which is symmetric. Fairly abundant beta rhythms are seen diffusely, but particularly centrally and bifrontally. The patient is awake, talking, and laughing intermittently throughout the recording. The patient has drowsed with attenuation of background alpha rhythms and bitemporal and central slowing, but does not clearly enter stage 2 sleep. Activation procedures are not attempted. There are no clinical events. There are no focal, lateralized, or epileptiform abnormalities. INTERPRETATION: Normal awake EEG other than excessive beta activity consistent with benzodiazepine drug affect. There are no focal or epileptiform features to this recording. [id number]/[facility] #: [id number] [facility]
[2018-12-31 05:49] LABS: ABS Basophils 0 10^3/ul (0-0.2); ABS Eosinophils 0.1 10^3/ul (0-0.6); ABS Lymphocytes 1.5 10^3/ul (1.0-4.8); ABS Monocytes 1.1 10^3/ul (0-0.8); ABS Neutrophils 8.5 10^3/ul (1.5-7.7); ABS Nucleated RBC 0 10^3/ul; Eosinophil % 0.8 %; Hematocrit 33 % (35-47); Lymphocyte % 13.5 %; Mean Corpuscular HGB Conc 33 g/dl (31-36); Mean Corpuscular Hemoglobin 29 pg (27-31); Mean Corpuscular Volume 88 fL (80-97); Mean Platelet Volume 7.8 fL (7.4-10.4); Nucleated Red Blood Cells % 0; Platelet Count 249 10^3/ul (150-450); Red Blood Count 3.74 10^6/ul (4.00-5.40); Red Cell Distribution Width 13 % (10.5-15); White Blood Count 11.3 10^3/ul (3.5-10.8)
[2018-12-31 06:12] LABS: Albumin 3.3 g/dL (3.2-5.2); Albumin/Globulin Ratio 1.4 (1-3); BUN/Creatinine Ratio 12.3 (8-20); Calcium 8.1 mg/dL (8.6-10.3); EGFR Non-African American 133.9 (>60); Globulin 2.3 g/dL (2-4); Magnesium 1.9 mg/dL (1.9-2.7); Potassium 3.2 mmol/L (3.5-5.0); Total Bilirubin 0.3 mg/dL (0.2-1.0); Total Protein 5.6 g/dL (6.4-8.9)
[2018-12-31] MEDS: NS 0.9% 1000 ML** 1,000 ML IV SCH (07:38)
[2018-12-31] MEDS ORDERED: Potassium Chloride LIQUID* 20 MEQ PACKET PO ONE (07:53)
[2018-12-31] MEDS: Benztropine TAB* 1 MG PO SCH ×2 (08:20→20:51)
[2018-12-31] MEDS: Magic Mouth Was-BEN/MAAL/LIDO SWISH SPIT SCH ×4 (08:22→20:54)
--- NOTE | 2018-12-31 08:23 | CONSULT ---
Consult Consult: RENÉ " I can walk" 23 year old female with a history of PTSD, psychotic disorder, with recent ingestion of LSD. The patient was seen this morning for a follow up visit. She reported being able to walk and got up to demonstrate that she could walk. She did report mild left leg stiffness but denied pain, fever nausea, vomiting, muscle spasms. She verbalized wanting to restart medications again other than risperdal. She denied trouble breathing or enlarged tongue, or abnormal eye movements. She denied seizures. She reported adequate appetite and sleep. The patient denied suicidal and or homicidal ideation intent or plan. The patient denied auditory and/ or visual hallucinations. She expressed that she can live with her mother and notes that although she would like to live with Bethany her sister she knows that having 3 children is hard to make time for her and she will live with her mother. 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 Mental Status Exam on Admission APPEARANCE : 23 year old who appears stated age. Patient is not malodourous, and appears to have some what fair hygiene and grooming. BEHAVIOR: Cooperative EYE CONTACT: fair PSYCHOMOTOR ACTIVITY: no observed psychomotor agitation or retardation. MOVEMENTS: No abnormal movements observed. SPEECH : normal rate, rhythm, low volume and tone. MOOD : "fine " AFFECT : euthymic THOUGHT PROCESS: mostly linear and goal directed THOUGHT CONTENT: no preoccupations, some delusions PERCEPTION: Denied auditory and or visual hallucinations. SUICIDALITY Denied suicidal ideation, intent or plan. HOMICIDALITY Denied homicidal ideation, intent or plan. Insight/judgment: improved insight and judgment ORIENTATION: Oriented to self, location, and time. Knows current president and current events. Diagnosis Acute Dystonia vs NMS , Hallucinogen use disorder , PTSD, Rule out bipolar disorder, Rule out alcohol syndrome. Assessment: 23 year old with history of psychosis and recent use of LSD presented disorganized and regressive. Patient was treated with neuroleptic medication and developed muscle stiffness and elevated CPK and was transferred to the medical floor. Patient has shown improvement in organization of behavior, thought process and has insight into her treatment needs. Plan #Supportive care per medical team. # CPK trending down 3112 today. # Do not restart anti-psytchotic medication. # Psychiatry will continue to follow daily. #[facility] social work in process of obtaining follow [facility] # Releases were signed today to talk to her mother. #Please contact [facility] before discharge Levi Tirado M.D Psychiatrist #[id number] Sodium 137 mmol/L (135-145) 12/31/18 05:25 Potassium 3.2 mmol/L (3.5-5.0) L 12/31/18 05:25 BUN 7 mg/dL (6-24) 12/31/18 05:25 Creatinine 0.57 mg/dL (0.51-0.95) 12/31/18 05:25 Calcium 8.1 mg/dL (8.6-10.3) L 12/31/18 05:25 Magnesium 1.9 mg/dL (1.9-2.7) 12/31/18 05:25 AST 90 U/L (13-39) H 12/31/18 05:25 ALT 51 U/L (7-52) 12/31/18 05:25 Vital Signs Temp Pulse Resp BP Pulse Ox 98.8 F 75 18 116/76 99 12/31/18 08:08 12/31/18 08:08 12/31/18 08:08 12/31/18 08:08 12/31/18 08:08 12/30/18 12/30/18 12/30/18 05:50 12:43 12:43 WBC 14.5 H RBC 4.10 Hgb 12.1 Hct 37 MCV 89 MCH 30 MCHC 33 RDW 13 Plt Count 307 MPV 7.5 Neut % (Auto) 78.6 Lymph % (Auto) 10.9 [place] % (Auto) 9.8 Eos % (Auto) 0.2 Baso % (Auto) 0.5 Absolute Neuts (auto) 11.4 H Absolute Lymphs (auto) 1.6 Absolute Monos (auto) 1.4 H Absolute Eos (auto) 0 Absolute Basos (auto) 0.1 Absolute Nucleated RBC 0 Nucleated RBC % 0 Sodium 138 Potassium 3.5 Chloride 107 Carbon Dioxide 25 Anion Gap 6 BUN 5 L Creatinine 0.55 Est GFR ( Amer) 168.8 Est GFR (Non-Af Amer) 139.5 BUN/Creatinine Ratio 9.1 Glucose 109 H Calcium 8.3 L Magnesium Total Bilirubin AST ALT Alkaline Phosphatase Total Creatine Kinase 4790 H Total Protein Albumin Globulin Albumin/Globulin Ratio Urine Color Yellow Urine Appearance Cloudy Urine pH 5.0 Ur Specific [place] 1.018 Urine Protein Negative Urine Ketones 1+ A Urine Blood Negative Urine Nitrate Negative Urine Bilirubin Negative Urine Urobilinogen Negative Ur Leukocyte Esterase Trace A Urine WBC (Auto) 1+(6-10/hpf) A Urine RBC (Auto) 2+(6-10/hpf) A Urine Bacteria Absent Urine Glucose Negative 12/31/18 12/31/18 05:25 05:25 WBC 11.3 H RBC 3.74 L Hgb 11.0 L Hct 33 L MCV 88 MCH 29 MCHC 33 RDW 13 Plt Count 249 MPV 7.8 Neut % (Auto) 75.8 Lymph % (Auto) 13.5 [place] % (Auto) 9.7 Eos % (Auto) 0.8 Baso % (Auto) 0.2 Absolute Neuts (auto) 8.5 H Absolute Lymphs (auto) 1.5 Absolute Monos (auto) 1.1 H Absolute Eos (auto) 0.1 Absolute Basos (auto) 0 Absolute Nucleated RBC 0 Nucleated RBC % 0 Sodium 137 Potassium 3.2 L Chloride 107 Carbon Dioxide 26 Anion Gap 4 BUN 7 Creatinine 0.57 Est GFR ( Amer) 162.0 Est GFR (Non-Af Amer) 133.9 BUN/Creatinine Ratio 12.3 Glucose 122 H Calcium 8.1 L Magnesium 1.9 Total Bilirubin 0.30 AST 90 H ALT 51 Alkaline Phosphatase 46 Total Creatine Kinase 3112 H Total Protein 5.6 L Albumin 3.3 Globulin 2.3 Albumin/Globulin Ratio 1.4 Urine Color Urine Appearance Urine pH Ur Specific [place] Urine Protein Urine Ketones Urine Blood Urine Nitrate Urine Bilirubin Urine Urobilinogen Ur Leukocyte Esterase Urine WBC (Auto) Urine RBC (Auto) Urine Bacteria Urine Glucose
--- NOTE | 2018-12-31 14:35 | PN ---
Subjective Date of Service: 12/31/18 Interval History: Patient is feeling very anxious regarding her medical status. Patient has pain in her left buttock and left leg and refuses any examination of these. Patient denies CP, SOB, N/V. Patient has intermittent abdominal pain. Patient denies diarrhea, constipation. Patient states her mood is not good, she is very anxious , patient denies SI/HI. Patient does not want to go back to [facility]. Patient after mark removed feels like she needs to urinate but can't. Family History: Unchanged from Admission Social History: Unchanged from Admission Past Medical History: Unchanged from Admission Objective Active Medications: Acetaminophen (Tylenol Tab*) 650 mg PO Q4H PRN PRN Reason: PAIN Al Hydrox/Mg Hydrox/Simethicone (Maalox Plus*) 30 ml PO Q4H PRN PRN Reason: INDIGESTION Benztropine Mesylate (Cogentin Tab*) 1 mg PO BID [facility] Last Admin: 12/31/18 08:20 Dose: 1 mg Lorazepam (Ativan Tab(*)) 1 mg PO Q6H PRN PRN Reason: ANXIETY Multi-Ingredient Mouthwash/Gargle (Magic Mouth Was-Darrel/Maal/Lido*) 5 ml SWISH SPIT QID [facility] Last Admin: 12/31/18 12:44 Dose: Not Given Vital Signs - 8 hr 12/31/18 12/31/18 07:45 08:08 Temperature 98.8 F Pulse Rate 75 Respiratory 18 18 Rate Blood Pressure 116/76 (mmHg) O2 Sat by Pulse 99 Oximetry Oxygen Devices in Use Now: None Appearance: Patient is a 23yo female who appears stated age and is sitting in the bed in [facility]. Eyes: No Scleral Icterus, PERRLA Ears/Nose/Mouth/Throat: NL Teeth, Lips, Gums, Clear Oropharnyx, Mucous Membranes Moist Neck: NL Appearance and Movements; NL JVP, Trachea Midline Respiratory: Symmetrical Chest Expansion and Respiratory Effort, Clear to Auscultation Cardiovascular: NL Sounds; No Murmurs; No JVD, RRR, No Edema Abdominal: No Hepatosplenomegaly, - - Normal bowel sounds, slight tenderness to palpation in epigastric area. Lymphatic: No Cervical Adenopathy Extremities: No Edema, No Clubbing, Cyanosis Skin: No Rash or Ulcers, No Nodules or Sclerosis Neurological: Alert and Oriented x 3, NL Sensation, NL Muscle Strength and Tone , - - CN II-XII Result Diagrams: 12/31/18 05:25 12/31/18 05:25 Microbiology and Other Data: Microbiology 12/30/18 05:50 Urine Culture - Final Urine No Growth (<1,000 CFU/mL) Assess/Plan/Problems-Billing Assessment: Ms. Lewis is a 23 yo F with PMH of psychosis who was admitted to the [facility] on d/t erratic behavior and was progressing well until 12/29/18 when she was noted to have AMS, tachycardia, and an inability to ambulate and was admitted to the medical floor for further evaluation. Patient is feeling better with CPK trending down, there is concern for mild NMS. - Patient Problems (1) Altered mental status Current Visit: Yes Status: Acute Code(s): R41.82 - ALTERED MENTAL STATUS, UNSPECIFIED SNOMED Code(s): 299378705 Comment: - Increased agitation, concern for muscle rigidity, and inability to ambulate - Reports inability to move legs on my exam and severe pain on palpation, but has been noted to be moving LE without difficulty - Received multiple IM antipsychotics over the last several days - Possible drug reaction or mild NMS - Is now ambulatory but is retaining urine up to 900ml and unable to void. Reinsert Mark. (2) Acute urinary retention Current Visit: Yes Status: Acute Code(s): R33.8 - OTHER RETENTION OF URINE SNOMED Code(s): 610315243 Comment: - Retaining up to 900mls - Likely due to irritation from previous mark insertion VS detruser muscle dysfunction from retention. Will do void trial again in AM. (3) Psychosis Current Visit: Yes Status: Acute Comment: - Management per Psych - Will likely need continued [facility] stay before discharge. (4) Elevated creatine kinase Current Visit: Yes Status: Acute Code(s): R74.8 - ABNORMAL LEVELS OF OTHER SERUM ENZYMES SNOMED Code(s): 204821024 Comment: - Trending down, 6300 to 4700 - Suspect secondary to multiple IM injections or NMS - Continue to trend, encourage PO intake. (5) Full code status Current Visit: Yes Status: Acute Code(s): Z78.9 - OTHER SPECIFIED HEALTH STATUS SNOMED Code(s): 138120953 Comment: (6) DVT prophylaxis Current Visit: Yes Status: Acute Code(s): NTA2025 - SNOMED Code(s): 495653461 Comment: - SCDs Status and Disposition: Observation for continued AMS and inability to ambulate. Anticipate d/c back down to [facility] when medically cleared. Psych is following closely. Hopeful return tomorrow.
[2019-01-01 06:01] LABS: BUN/Creatinine Ratio 11.8 (8-20); EGFR African American 132.2 (>60); EGFR Non-African American 109.2 (>60)
[2019-01-01] MEDS ORDERED: NS 0.9% 1000 ML** 1,000 ML IV ONE (07:14)
--- NOTE | 2019-01-01 08:17 | CONSULT ---
Consult Consult: RENÉ " I am doing well" 23 year old female with a history of PTSD, psychotic disorder, with recent ingestion of LSD. The patient was seen this morning for a follow up visit. She no longer reported leg stiffness. She denied pain, fever nausea, vomiting, muscle spasms. She is in agreement with starting Abilify. She denied trouble breathing or enlarged tongue, or abnormal eye movements. She denied seizures. She reported adequate appetite and sleep. The patient denied suicidal and or homicidal ideation intent or plan. The patient denied auditory and/ or visual hallucinations. She plans to return to live with her mother. Her mother came to visit and in agreement with the plan. She is hopeful about the future and wants to live for her sister and to go back to school. Mental Status Exam on Admission APPEARANCE : 23 year old who appears stated age. Patient is not malodourous, and appears to have some what fair hygiene and grooming. BEHAVIOR: Cooperative EYE CONTACT: fair PSYCHOMOTOR ACTIVITY: no observed psychomotor agitation or retardation. MOVEMENTS: No abnormal movements observed. SPEECH : normal rate, rhythm, low volume and tone. MOOD : "good " AFFECT : euthymic THOUGHT PROCESS: mostly linear and goal directed THOUGHT CONTENT: no preoccupations, some delusions PERCEPTION: Denied auditory and or visual hallucinations. SUICIDALITY Denied suicidal ideation, intent or plan. HOMICIDALITY Denied homicidal ideation, intent or plan. Insight/judgment: improved insight and judgment ORIENTATION: Oriented to self, location, and time. Knows current president and current events. Diagnosis Acute Dystonia vs NMS , Hallucinogen use disorder , PTSD, Rule out bipolar disorder, Rule out alcohol syndrome. Assessment: 23 year old with history of psychosis and recent use of LSD presented disorganized and regressive. Patient was treated with neuroleptic medication and developed muscle stiffness and elevated CPK and was transferred to the medical floor. Patient has shown improvement in organization of behavior, thought process and has insight into her treatment needs. Plan #Medical management per medical team. #Patient cleared from Psychiatry for discharge. #Start Abilify 2mg po daily can discharge with one month supply. #Arrangements for outpatient follow up secured. Family on board with discharge plan. Levi Tirado M.D Psychiatrist #[id number]
[2019-01-01] MEDS: Benztropine TAB* 1 MG PO SCH (08:53)
[2019-01-01] MEDS ORDERED: ARIPiprazole TAB* 2 MG PO SCH (09:00)
[2019-01-01 11:28] VITALS: BP 128/70
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
== END 2019-01-01 13:55 | disposition home or self-care (01) ==
LOC: MEDTELE 00:15
PROVIDERS: ADMIT Hospitalist; ATTEND Internal Medicine
DX: M62.82 Rhabdomyolysis (principal); F29 Unspecified psychosis not due to a substance or known physiological condition; R00.0 Tachycardia, unspecified; R41.82 Altered mental status, unspecified; F25.9 Schizoaffective disorder, unspecified; R33.8 Other retention of urine; R74.8 Abnormal levels of other serum enzymes; E86.0 Dehydration
CPT/HCPCS: 36415; 74018; 80048; 80053; 81003; 81015; 82550; 83735; 85025; 87086; 96360; 96361; A9270-GY; G0378

== ENCOUNTER 2019-01-02 09:41 | Inpatient (IN) | payer OTHER, MEDICAID ==
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
[2019-01-02] MEDS: Al Hydrox/Mg Hydrox/Simet LIQ* 30 ML UDC PO PRN ×2 (19:24→23:35)
[2019-01-02] MEDS: Benztropine TAB* 1 MG PO SCH (20:39)
[2019-01-02] MEDS: Acetaminophen TAB* 325 MG PO PRN (20:39)
[2019-01-03] MEDS ORDERED: Olanzapine INJ(NF) 10 MG VIAL IM ONE ×4 (01:17→04:31)
[2019-01-03] MEDS ORDERED: OLANzapine TAB*ODT* 5 MG ONE (01:17)
[2019-01-03] MEDS ORDERED: OLANzapine TAB*ODT* 5 MG PO ONE (02:10)
[2019-01-03] MEDS ORDERED: OLANzapine TAB*ODT* 10 MG TAB ONE ×2 (04:18→23:18)
[2019-01-03] MEDS ORDERED: OLANzapine TAB*ODT* 10 MG TAB PO ONE (04:31)
[2019-01-03] MEDS: Vitamin THERAPEUTIC TAB PO SCH (10:04)
[2019-01-03] MEDS: ARIPiprazole TAB* 2 MG PO SCH (10:04)
[2019-01-03] MEDS: Benztropine TAB* 1 MG PO SCH ×2 (10:04→20:19)
[2019-01-03 11:31] LABS: HDL Cholesterol 48.9 mg/dL
[2019-01-03] MEDS: Acetaminophen TAB* 325 MG PO PRN (11:32)
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
[2019-01-03] MEDS: Ibuprofen TAB* 600 MG PO PRN (14:42)
[2019-01-03] MEDS ORDERED: chlorproMAZINE INJ* 25 MG/ML 2 ML (50 MG) ONE (23:19)
[2019-01-04] MEDS ORDERED: LORazepam TAB(*) 1 MG ONE (00:21)
[2019-01-04] MEDS ORDERED: chlorproMAZINE INJ* 25 MG/ML 2 ML (50 MG) IM ONE (01:20)
[2019-01-04] MEDS ORDERED: LORazepam INJ* 2 MG/ML 1 ML VIAL IM ONE (01:20)
[2019-01-04] MEDS ORDERED: OLANzapine TAB*ODT* 10 MG TAB PO ONE (01:20)
[2019-01-04] MEDS ORDERED: LORazepam TAB(*) 1 MG PO ONE (01:20)
[2019-01-04] MEDS: Benztropine TAB* 1 MG PO SCH ×2 (07:50→20:13)
[2019-01-04] MEDS: Vitamin THERAPEUTIC TAB PO SCH (07:50)
[2019-01-04] MEDS: ARIPiprazole TAB* 2 MG PO SCH (07:50)
[2019-01-04] MEDS: Acetaminophen TAB* 325 MG PO PRN (07:52)
--- NOTE | 2019-01-04 14:16 | PN ---
Subjective - Subjective Date of Service: 01/04/19 Service Type: 22647 Hosp care 35 min high complexity Subjective: CC: " I am tired" Patient was recently re-admitted on behalf of her mother after returning home. Her mother said that she is going on vacation and is unable to manage her behavioral issues at home. She required behavioral redirection on many occasions over the weekend. She received PRN IM medications without incident. She reported that she wants to go to [facility] with her mother. Her mother came to visit for visiting hours. . Objective - Appearance Appearance: Healthy Appearing Dysmorphic Features: No Hygiene: Normal Grooming: Fairly Well Kept - Behavior Psychomotor Activities: Abnormal-Increased Exhibits Abnormal Movement: No - Attitude and Relatedness Attitude and Relatedness: Superficially Cooperative Eye Contact: Fair - Speech Quality: Unpressured Latencies: Short Quantity: Terse - Mood Patient's Decription of Mood: "Fine" - Affect Observed Affect: Constricted Affect Consistent with: Euthymia - Thought Process Patient's Thought Process: Coherent, Goal Directed, Disorganized Thought Content: No Passive Wish, No Suicidal Planning, No Homicidal Ideation, No Paranoid Ideation - Sensorium Experiencing Hallucinations: Yes Type of Hallucinations: Visual: No, Auditory: Yes, Command: No - Level of Consciousness Level of Consciousness: Alert Orientation: Yes Intact, Yes Orientated to Time, Yes Orientated to Place, Yes Orientated to Person - Impulse Control Impulse Control: Impaired - Insight and Judgement Insight and Judgement: Impaired - Group Participation Particating in Group Activities: No - Medication Management Medication Management Adherence: Yes Assessment - Assessment Merits Inpatient Hospitalization: For Immediate Safety Clinical Impression: 23 year old female that requires behavioral re direction was recently re- [facility] to the [facility] after returning to live with her mother Plan - Plan Treatment Plan: Name: WAQAS BROWER Birthdate: 1995 [id number] # The patient requires inpatient admission at this time to assure safety, receive treatment and work toward stabilization. #CPK level reviewed and is trending down to 861 # Q15 minute observation. # Monitor vital signs #Awaiting for [employer] , evaluation tomorrow # Collaboration with Social Work to work toward discharge planning. #Monitor for EPS #Start Abilify 5mg PO daily 01/03/19 01/03/19 11:01 11:01 Hemoglobin A1c 5.3 Total Creatine Kinase 861 H Triglycerides 123 Cholesterol 141 LDL Cholesterol 68 HDL Cholesterol 48.9 Hemoglobin A1c 5.3 % (4.0-5.6) 01/03/19 11:01 Triglycerides 123 mg/dL 01/03/19 11:01 Cholesterol 141 mg/dL 01/03/19 11:01 LDL Cholesterol 68 mg/dL 01/03/19 11:01 Vital Signs Temp Pulse Resp BP Pulse Ox 97.8 F 137 16 117/76 100 01/04/19 07:39 01/04/19 07:39 01/04/19 09:57 01/04/19 07:39 01/04/19 07:39 Continued Medication Management: Continue Outpt Medication Medications: Current Medications Acetaminophen (Tylenol Tab*) 650 mg PO Q4H PRN PRN Reason: PAIN or TEMP > 101 F Last Admin: 01/04/19 07:52 Dose: 650 mg Al Hydrox/Mg Hydrox/Simethicone (Maalox Plus*) 30 ml PO Q4H PRN PRN Reason: INDIGESTION Last Admin: 01/02/19 23:35 Dose: 30 ml Aripiprazole (Abilify Tab*) 5 mg PO DAILY [facility] Benztropine Mesylate (Cogentin Tab*) 1 mg PO BID [facility] Last Admin: 01/04/19 07:50 Dose: 1 mg Ibuprofen (Motrin Tab*) 600 mg PO Q6H PRN PRN Reason: PAIN/FEVER Last Admin: 01/03/19 14:42 Dose: 600 mg Multivitamins (Theragran Tab*) 1 tab PO DAILY [facility] Last Admin: 01/04/19 07:50 Dose: 1 tab - Discharge Plan Discharge Plan: Inpatient Hospitalization
[2019-01-05] MEDS ORDERED: hydrOXYzine HCL TAB* 50 MG ONE (01:52)
[2019-01-05] MEDS ORDERED: diPHENhydraMINE PO* 50 MG PO ONE ×2 (04:46→16:45)
[2019-01-05] MEDS ORDERED: Haloperidol INJ IV/IM* 5 MG/ML AMP IM PRN (04:46)
[2019-01-05] MEDS ORDERED: diPHENhydraMINE IV* 50 MG/ML 1 ml VIAL (BENADRYL) IM PRN (04:46)
[2019-01-05] MEDS ORDERED: Haloperidol TAB* 5 MG PO ONE (04:46)
[2019-01-05] MEDS ORDERED: diPHENhydraMINE IV* 50 MG/ML 1 ml VIAL (BENADRYL) ONE (04:52)
[2019-01-05] MEDS ORDERED: Haloperidol INJ IV/IM* 5 MG/ML AMP ONE (04:52)
[2019-01-05] MEDS ORDERED: ARIPiprazole TAB* 2 MG PO SCH (09:00)
[2019-01-05] MEDS: Benztropine TAB* 1 MG PO SCH ×2 (09:08→22:06)
[2019-01-05] MEDS: Vitamin THERAPEUTIC TAB PO SCH (09:11)
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
[2019-01-05] MEDS ORDERED: LORazepam TAB(*) 1 MG PO ONE (16:45)
[2019-01-05] MEDS ORDERED: LORazepam TAB(*) 1 MG ONE (16:51)
[2019-01-05] MEDS ORDERED: diPHENhydraMINE PO* 50 MG ONE (16:52)
[2019-01-05] MEDS: Acetaminophen TAB* 325 MG PO PRN (23:02)
[2019-01-05] MEDS: hydrOXYzine HCL TAB* 50 MG PO PRN (23:57)
[2019-01-06] MEDS: Acetaminophen TAB* 325 MG PO PRN ×2 (06:14→17:20)
[2019-01-06] MEDS: Benztropine TAB* 1 MG PO SCH ×2 (08:31→21:58)
[2019-01-06] MEDS: Vitamin THERAPEUTIC TAB PO SCH (08:32)
[2019-01-06] MEDS ORDERED: ARIPiprazole TAB* 5 MG PO SCH (09:00)
--- NOTE | 2019-01-06 14:49 | PN ---
Subjective - Subjective Date of Service: 01/06/19 Service Type: [id number] Hosp care 35 min high complexity Subjective: CC " I want to go where he is going" Patient continues to be intrusive and regressed into child like. She knocks on the doors of others on the unit. She denied having muscle pain, stiffness or fever. Patient is requesting to go home with another peer. Patient is requesting another doctor. Per staff poor sleep and unable to respect the boundrys of others. Wearing other peoples clothing. Objective - General Observations Appears Stated Age: Yes Stature: WNL Posture: WNL Eye Contact: Average Behavior/Activity: Impulsive Separation from Parent/Guardian: Cannot Separate - Interaction Observations Attitude Towards Examiner: Uncooperative Attitude Towards Parent/Guardian: Demanding Stated Mood: Expansive Affect: Restricted Speech Pattern/Tone: Clear Thought Process: Impoverished Perception: Derealization Thought Content: Obsessional Hallucination Type: Gustatory Delusion Type: None - Cognitive Function Orientation: A&O x 4 Level of Consciousness: Awake Cognition: Impaired Attention/Concentration Estimated Intelligence: MR Range Insight: Mostly Blames Others for Problems, Difficulty Acknowledging Presence of Psyciatric Problems Judgment Within Normal Limits: No Ability to Make Reasonable Decisions: Serverely Impaired - Medication Compliance Cooperative with Inpatient Medication Regimen: Yes - Group Participation Participates in Group Activities: No Assessment - Assessment Merits Inpatient Hospitalization: For Immediate Safety Clinical Impression: 23 year old female that requires behavioral re direction was recently re- admitted to the [facility] after returning to live with her mother Plan - Plan Treatment Plan: Name: WAQAS BROWER Birthdate: 1995 [id number] # The patient requires inpatient admission at this time to assure safety, receive treatment and work toward stabilization. # Q15 minute observation. # Monitor vital signs #Awaiting for [employer] , evaluation # Collaboration with Social Work to work toward discharge planning. #Monitor for EPS #Continue Abilify 10mg PO daily will discontinue tomorrow after long acting injection # Abilify Aristada 675mg first dose + subsequent dose 441mg IM scheduled for tomorrow next due 02/04/19 # If patient fails outpatient setting with support of [employer] [facility], will start process of referring to the [facility]. # Limit the amount of benzos and PRNs given and attempt behavioral control before resorting to IM PRNs Hemoglobin A1c 5.3 % (4.0-5.6) 01/03/19 11:01 Triglycerides 123 mg/dL 01/03/19 11:01 Cholesterol 141 mg/dL 01/03/19 11:01 LDL Cholesterol 68 mg/dL 01/03/19 11:01 Vital Signs Temp Pulse Resp BP Pulse Ox 98.9 F 99 16 114/72 99 01/06/19 08:19 01/06/19 08:19 01/06/19 08:19 01/06/19 08:19 01/06/19 08:19 Continued Medication Management: Continue Outpt Medication Medications: Current Medications Acetaminophen (Tylenol Tab*) 650 mg PO Q4H PRN PRN Reason: PAIN or TEMP > 101 F Last Admin: 01/06/19 06:14 Dose: 650 mg Al Hydrox/Mg Hydrox/Simethicone (Maalox Plus*) 30 ml PO Q4H PRN PRN Reason: INDIGESTION Last Admin: 01/02/19 23:35 Dose: 30 ml Aripiprazole (Abilify Tab*) 10 mg PO DAILY [facility] Last Admin: 01/06/19 08:30 Dose: 10 mg Benztropine Mesylate (Cogentin Tab*) 1 mg PO BID [facility] Last Admin: 01/06/19 08:31 Dose: 1 mg Hydroxyzine HCl (Atarax Tab*) 50 mg PO Q6H PRN PRN Reason: ANXIETY/ AGITATION Last Admin: 01/05/19 23:57 Dose: 50 mg Ibuprofen (Motrin Tab*) 600 mg PO Q6H PRN PRN Reason: PAIN/FEVER Last Admin: 01/03/19 14:42 Dose: 600 mg Multivitamins (Theragran Tab*) 1 tab PO DAILY [facility] Last Admin: 01/06/19 08:32 Dose: Not Given - Discharge Plan Discharge Plan: Inpatient Hospitalization
[2019-01-06] MEDS: Al Hydrox/Mg Hydrox/Simet LIQ* 30 ML UDC PO PRN (17:20)
[2019-01-06] MEDS: hydrOXYzine HCL TAB* 50 MG PO PRN (23:59)
[2019-01-06] MEDS: Ibuprofen TAB* 600 MG PO PRN (23:59)
[2019-01-07] MEDS ORDERED: ARIPiprazole TAB* 5 MG PO ONE (09:00)
[2019-01-07] MEDS: Vitamin THERAPEUTIC TAB PO SCH (09:59)
[2019-01-07] MEDS: Benztropine TAB* 1 MG PO SCH ×2 (09:59→20:00)
[2019-01-07] MEDS: Acetaminophen TAB* 325 MG PO PRN (10:00)
[2019-01-07] MEDS: hydrOXYzine HCL TAB* 50 MG PO PRN (10:56)
[2019-01-07] MEDS ORDERED: OLANzapine TAB*ODT* 10 MG TAB PO ONE (12:26)
--- NOTE | 2019-01-07 15:39 | PN ---
Subjective - Subjective Date of Service: 01/07/19 Service Type: [id number] Hosp care 25 min moderate complexity Subjective: Viaml is having a difficult day so far. She refused to speak to me, telling me I was and in [place] and that she could never go to [facility] or [facility]. She had Aristada Initio scheduled for today, but was resistant. Zyprexa ODT 10 mg was ordered for her to help her sleep. Information gathered from others indicates that she had recently been well, which corresponds to times she had been able to sleep, which she has not been reliably doing. While there are certainly behavioral components to her presentation, there are still psychotic elements. I spoke with her former animal nutrition teacher Pau who is interested in taking Vimal home, but who also doesn't want to get in over her head. She showed a photo of Vimal at age 20 looking well and happy and healthy. Objective - General Observations Appearance: Disheveled Appears Stated Age: No - younger Stature: Thin Posture: WNL Eye Contact: Intense Behavior/Activity: Peculiar, Impulsive, Agitated - Interaction Observations Attitude Towards Examiner: Uncooperative, Other (See Comment) Attitude to Examiner Comment: Angry Stated Mood: Dysphoric, Angry Affect: Labile Speech Pattern/Tone: Clear Thought Process: Filght of Ideas Thought Content: Paranoid Hallucination Type: None Delusion Type: Control - Cognitive Function Orientation: A&O x 4 Level of Consciousness: Awake Cognition: Impaired Cognition Estimated Intelligence: Borderline Range Insight: Difficulty Acknowledging Presence of Psyciatric Problems Judgment Within Normal Limits: No Ability to Make Reasonable Decisions: Serverely Impaired - Medication Compliance Cooperative with Inpatient Medication Regimen: No - Group Participation Participates in Group Activities: No Assessment - Assessment Merits Inpatient Hospitalization: For Immediate Safety, For Discharge Planning Clinical Impression: 23 year old female that requires behavioral re direction was recently re- admitted to the [facility] after returning to live with her mother Plan - Plan Treatment Plan: Name: VIMAL BROWER Birthdate: 1995 [id number] # The patient requires inpatient admission at this time to assure safety, receive treatment and work toward stabilization. # Q15 minute observation. # Monitor vital signs #Awaiting for [email or web address] [facility] [place] , evaluation # Collaboration with Social Work to work toward discharge planning. #Monitor for EPS #Continue Abilify 10mg PO daily will discontinue tomorrow after long acting injection # Abilify Krystleada 675mg first dose + subsequent dose 441mg IM scheduled for tomorrow next due 02/04/19 # If patient fails outpatient setting with support of [facility], will start process of referring to the [facility]. # Limit the amount of benzos and PRNs given and attempt behavioral control before resorting to IM PRNs Hemoglobin A1c 5.3 % (4.0-5.6) 01/03/19 11:01 Triglycerides 123 mg/dL 01/03/19 11:01 Cholesterol 141 mg/dL 01/03/19 11:01 LDL Cholesterol 68 mg/dL 01/03/19 11:01 Vital Signs Temp Pulse Resp BP Pulse Ox 98.9 F 99 16 114/72 99 01/06/19 08:19 01/06/19 08:19 01/06/19 08:19 01/06/19 08:19 01/06/19 08:19 Continued Medication Management: Different Medication Medications: Current Medications Acetaminophen (Tylenol Tab*) 650 mg PO Q4H PRN PRN Reason: PAIN or TEMP > 101 F Last Admin: 01/07/19 10:00 Dose: 650 mg Al Hydrox/Mg Hydrox/Simethicone (Maalox Plus*) 30 ml PO Q4H PRN PRN Reason: INDIGESTION Last Admin: 01/06/19 17:20 Dose: 30 ml Benztropine Mesylate (Cogentin Tab*) 1 mg PO BID [facility] Last Admin: 01/07/19 09:59 Dose: 1 mg Hydroxyzine HCl (Atarax Tab*) 50 mg PO Q6H PRN PRN Reason: ANXIETY/ AGITATION Last Admin: 01/07/19 10:56 Dose: 50 mg Ibuprofen (Motrin Tab*) 600 mg PO Q6H PRN PRN Reason: PAIN/FEVER Last Admin: 01/06/19 23:59 Dose: 600 mg Multivitamins (Theragran Tab*) 1 tab PO DAILY [facility] Last Admin: 01/07/19 09:59 Dose: 1 tab Olanzapine (Zyprexa *Odt*) 10 mg PO Q6H PRN PRN Reason: AGITATION Throat Lozenges (Chloraseptic Corina*) 1 corina PO Q6H PRN PRN Reason: SORE THROAT - Discharge Plan Discharge Plan: Outpatient Follow Up
[2019-01-07] MEDS: OLANzapine TAB*ODT* 10 MG TAB PO PRN (20:00)
[2019-01-08] MEDS: Benzocaine/Menthol LOZ* 1 LOZENGE PO PRN ×2 (01:41→08:30)
[2019-01-08] MEDS: Benztropine TAB* 1 MG PO SCH (08:04)
[2019-01-08] MEDS: Vitamin THERAPEUTIC TAB PO SCH (08:05)
[2019-01-08] MEDS: OLANzapine TAB*ODT* 10 MG TAB PO PRN ×2 (11:33→18:04)
--- NOTE | 2019-01-08 16:22 | PN ---
Subjective - Subjective Date of Service: 01/08/19 Service Type: [id number] Hosp care 25 min moderate complexity Subjective: Vimal did better today. She was not having psychotic symptoms and required PRN olanzapine only once, which did improve her behavior. She is interested in discharge and is not interested injectable Aristada. It remains an order. Her interest in discharge is reassuring, especially when she states she likes being inpatient on this unit. Objective - General Observations Appearance: Disheveled Appears Stated Age: Yes Stature: Thin Posture: WNL Eye Contact: Average Behavior/Activity: WNL - Interaction Observations Attitude Towards Examiner: Demanding Stated Mood: Dysphoric, Irritable Affect: Full Speech Pattern/Tone: Clear Thought Process: Coherent, Circumstantial Perception: WNL Thought Content: WNL Thought Process: Lethality: Paranoid Ideation Assessment - Assessment Merits Inpatient Hospitalization: For Immediate Safety Clinical Impression: 23 year old female that requires behavioral re direction was recently re- admitted to the [facility] after returning to live with her mother Plan - Plan Treatment Plan: Name: VIMAL BROWER Birthdate: 1995 [id number] # The patient requires inpatient admission at this time to assure safety, receive treatment and work toward stabilization. # Q15 minute observation. # Monitor vital signs #Awaiting for armen littlejohn , evaluation # Collaboration with Social Work to work toward discharge planning. #Monitor for EPS #Continue Abilify 10mg PO daily will discontinue tomorrow after long acting injection # Abilify Aristada 675mg first dose + subsequent dose 441mg IM scheduled for tomorrow next due 02/04/19 # If patient fails outpatient setting with support of armen littlejohn, will start process of referring to the [facility]. # Limit the amount of benzos and PRNs given and attempt behavioral control before resorting to IM PRNs Hemoglobin A1c 5.3 % (4.0-5.6) 01/03/19 11:01 Triglycerides 123 mg/dL 01/03/19 11:01 Cholesterol 141 mg/dL 01/03/19 11:01 LDL Cholesterol 68 mg/dL 01/03/19 11:01 Vital Signs Temp Pulse Resp BP Pulse Ox 98.9 F 99 16 114/72 99 01/06/19 08:19 01/06/19 08:19 01/06/19 08:19 01/06/19 08:19 01/06/19 08:19 01/08/19 Vimal is not currently accepting injectable medications. Aristata will continue to be offered. Olanzapine 10 mg continue to offer. Work with recreation therapy to reign in behaviors not consistent with a calm person. Continued Medication Management: Different Medication Medications: Current Medications Acetaminophen (Tylenol Tab*) 650 mg PO Q4H PRN PRN Reason: PAIN or TEMP > 101 F Last Admin: 01/07/19 10:00 Dose: 650 mg Al Hydrox/Mg Hydrox/Simethicone (Maalox Plus*) 30 ml PO Q4H PRN PRN Reason: INDIGESTION Last Admin: 01/06/19 17:20 Dose: 30 ml Aripiprazole (Abilify Tab*) 10 mg PO DAILY [facility] Benztropine Mesylate (Cogentin Tab*) 1 mg PO BID [facility] Last Admin: 01/08/19 08:04 Dose: 1 mg Hydroxyzine HCl (Atarax Tab*) 50 mg PO Q6H PRN PRN Reason: ANXIETY/ AGITATION Last Admin: 01/07/19 10:56 Dose: 50 mg Ibuprofen (Motrin Tab*) 600 mg PO Q6H PRN PRN Reason: PAIN/FEVER Last Admin: 01/06/19 23:59 Dose: 600 mg Multivitamins (Theragran Tab*) 1 tab PO DAILY [facility] Last Admin: 01/08/19 08:05 Dose: 1 tab Olanzapine (Zyprexa *Odt*) 10 mg PO Q6H PRN PRN Reason: AGITATION Last Admin: 01/08/19 11:33 Dose: 10 mg Throat Lozenges (Chloraseptic Corina*) 1 corina PO Q6H PRN PRN Reason: SORE THROAT Last Admin: 01/08/19 08:30 Dose: 1 corina - Discharge Plan Discharge Plan: Outpatient Follow Up
[2019-01-08] MEDS ORDERED: LORazepam TAB(*) 1 MG PO ONE (17:57)
[2019-01-09] MEDS: Benztropine TAB* 1 MG PO SCH ×4 (02:00→21:58)
[2019-01-09] MEDS: Acetaminophen TAB* 325 MG PO PRN (05:55)
[2019-01-09] MEDS: ARIPiprazole TAB* 5 MG PO SCH (08:20)
[2019-01-09] MEDS: Vitamin THERAPEUTIC TAB PO SCH (08:20)
[2019-01-09] MEDS ORDERED: Olanzapine INJ(NF) 10 MG VIAL IM ONE ×2 (12:03→12:10)
[2019-01-09] MEDS: hydrOXYzine HCL TAB* 50 MG PO PRN (15:23)
[2019-01-09] MEDS ORDERED: LORazepam TAB(*) 1 MG ONE (17:52)
[2019-01-09] MEDS ORDERED: LORazepam TAB(*) 1 MG PO ONE (18:15)
[2019-01-10] MEDS: OLANzapine TAB*ODT* 10 MG TAB PO PRN ×3 (01:14→16:47)
[2019-01-10] MEDS: Benzocaine/Menthol LOZ* 1 LOZENGE PO PRN (01:16)
[2019-01-10] MEDS: hydrOXYzine HCL TAB* 50 MG PO PRN ×4 (01:56→23:33)
[2019-01-10] MEDS: ARIPiprazole TAB* 5 MG PO SCH (07:05)
[2019-01-10] MEDS: Vitamin THERAPEUTIC TAB PO SCH (07:05)
[2019-01-10] MEDS: Benztropine TAB* 1 MG PO SCH ×2 (07:05→21:31)
[2019-01-10] MEDS ORDERED: LORazepam TAB(*) 1 MG PO ONE (11:30)
[2019-01-10] MEDS ORDERED: Benztropine TAB* 1 MG PO ONE (11:30)
[2019-01-10] MEDS ORDERED: LORazepam TAB(*) 1 MG ONE (11:33)
[2019-01-10] MEDS ORDERED: Benztropine TAB* 1 MG ONE (11:33)
--- NOTE | 2019-01-10 15:38 | PN ---
Subjective - Subjective Date of Service: 01/10/19 Service Type: [id number] Hosp care 25 min moderate complexity Subjective: Vimal has been difficult to manage due to her intrussive and impulsive behaviors. She has been pacing aimlessly intruding others personal spaces and not following redirections. She needed stats few times during the weekend. She also is a poor historian due to disorganizations of her thoughts and behaviors. Objective - General Observations Appearance: Unkempt Appears Stated Age: Yes Stature: Thin Posture: WNL Eye Contact: Intense Behavior/Activity: Impulsive - Interaction Observations Attitude Towards Examiner: Confused Stated Mood: Dysphoric Affect: Restricted Speech Pattern/Tone: Garbled Thought Process: Disorganized, Tangential, Filght of Ideas Thought Content: Preoccupation/Ruminations Hallucination Type: None Delusion Type: None - Cognitive Function Orientation: Person, Place Level of Consciousness: Awake, Alert Cognition: WNL Estimated Intelligence: Normal Assessment - Assessment Merits Inpatient Hospitalization: For Immediate Safety, For Stabilization, Pending Safe DC Plan Clinical Impression: 23 year old female that requires behavioral re direction was recently re- admitted to the [facility] after returning to live with her mother Plan - Plan Treatment Plan: Name: VIMAL BROWER Birthdate: 1995 [id number] # The patient requires inpatient admission at this time to assure safety, receive treatment and work toward stabilization. # Q15 minute observation. # Monitor vital signs #Awaiting for armen littlejohn , evaluation # Collaboration with Social Work to work toward discharge planning. #Monitor for EPS #Continue Abilify 10mg PO daily will discontinue tomorrow after long acting injection # Abilify Aristada 675mg first dose + subsequent dose 441mg IM scheduled for tomorrow next due 02/04/19 # If patient fails outpatient setting with support of [employer] eron, will start process of referring to the [facility]. # Limit the amount of benzos and PRNs given and attempt behavioral control before resorting to IM PRNs Hemoglobin A1c 5.3 % (4.0-5.6) 01/03/19 11:01 Triglycerides 123 mg/dL 01/03/19 11:01 Cholesterol 141 mg/dL 01/03/19 11:01 LDL Cholesterol 68 mg/dL 01/03/19 11:01 Vital Signs Temp Pulse Resp BP Pulse Ox 98.9 F 99 16 114/72 99 01/06/19 08:19 01/06/19 08:19 01/06/19 08:19 01/06/19 08:19 01/06/19 08:19 01/08/19 Vimal is not currently accepting injectable medications. Aristata will continue to be offered. Olanzapine 10 mg continue to offer. Work with recreation therapy to reign in behaviors not consistent with a calm person. Continued Medication Management: Continue Outpt Medication Medications: Current Medications Acetaminophen (Tylenol Tab*) 650 mg PO Q4H PRN PRN Reason: PAIN or TEMP > 101 F Last Admin: 01/09/19 05:55 Dose: 650 mg Al Hydrox/Mg Hydrox/Simethicone (Maalox Plus*) 30 ml PO Q4H PRN PRN Reason: INDIGESTION Last Admin: 01/06/19 17:20 Dose: 30 ml Aripiprazole (Abilify Tab*) 10 mg PO DAILY [facility] Last Admin: 01/10/19 07:05 Dose: 10 mg Benztropine Mesylate (Cogentin Tab*) 2 mg PO BID [facility] Hydroxyzine HCl (Atarax Tab*) 50 mg PO Q6H PRN PRN Reason: ANXIETY/ AGITATION Last Admin: 01/10/19 15:01 Dose: 50 mg Ibuprofen (Motrin Tab*) 600 mg PO Q6H PRN PRN Reason: PAIN/FEVER Last Admin: 01/06/19 23:59 Dose: 600 mg Multivitamins (Theragran Tab*) 1 tab PO DAILY [facility] Last Admin: 01/10/19 07:05 Dose: 1 tab Olanzapine (Zyprexa *Odt*) 10 mg PO Q6H PRN PRN Reason: AGITATION Last Admin: 01/10/19 10:34 Dose: 10 mg Throat Lozenges (Chloraseptic Corina*) 1 corina PO Q6H PRN PRN Reason: SORE THROAT Last Admin: 01/10/19 01:16 Dose: 1 corina - Discharge Plan Discharge Plan: Outpatient Follow Up Outpatient Program: [facility]
[2019-01-10] MEDS: Acetaminophen TAB* 325 MG PO PRN (19:08)
[2019-01-10] MEDS: Ibuprofen TAB* 600 MG PO PRN (23:32)
[2019-01-11] MEDS ORDERED: LORazepam TAB(*) 1 MG PO ONE (00:03)
[2019-01-11] MEDS ORDERED: LORazepam INJ* 2 MG/ML 1 ML VIAL IM ONE (00:03)
[2019-01-11] MEDS ORDERED: LORazepam INJ* 2 MG/ML 1 ML VIAL ONE (00:12)
[2019-01-11] MEDS: Benztropine TAB* 1 MG PO SCH ×2 (07:41→21:26)
[2019-01-11] MEDS: Vitamin THERAPEUTIC TAB PO SCH (07:41)
[2019-01-11] MEDS: ARIPiprazole TAB* 5 MG PO SCH (07:41)
--- NOTE | 2019-01-11 16:12 | PN ---
Subjective - Subjective Date of Service: 01/11/19 Service Type: [id number] Hosp care 25 min moderate complexity Subjective: Waqas is observed frequently throughout the day although she will not converse with me, specifically stating, "Get away from me." Waqas is a difficult member of the milieu as she is loud and intrusive and involved in other people's business even when it doesn't involve her. Her behavior has not risen to the level of receiving a PRN olanzapine yet today. She is interacting with another psychotic patient in an incendiary fashion, at times leading him around and then encouraging him to try to leave, for example. I will increase her Abilify to 15 mg. Objective - General Observations Appearance: Disheveled Appears Stated Age: Yes Stature: Thin Posture: WNL Eye Contact: Average, Avoidant Behavior/Activity: Impulsive, Agitated - Interaction Observations Attitude Towards Examiner: Uncooperative, Hostile, Dismissive Stated Mood: Dysphoric Affect: Labile Speech Pattern/Tone: Clear, Rambling, Excessive, Pressured Thought Process: Disorganized, Circumstantial Thought Content: Preoccupation/Ruminations, Paranoid Thought Process: Lethality: Paranoid Ideation Delusion Type: Persecution - Cognitive Function Orientation: A&O x 4, Confused Level of Consciousness: Awake, Alert Cognition: Impaired Cognition Insight: Difficulty Acknowledging Presence of Psyciatric Problems Judgment Within Normal Limits: No Ability to Make Reasonable Decisions: Serverely Impaired - Medication Compliance Cooperative with Inpatient Medication Regimen: Partial - Group Participation Participates in Group Activities: No Group Participation Comments: Inappropriate for groups. Assessment - Assessment Merits Inpatient Hospitalization: For Immediate Safety Clinical Impression: 23 year old female that requires behavioral re direction was recently re- admitted to the [facility] after returning to live with her mother Plan - Plan Treatment Plan: Name: WAQAS BROWER Birthdate: 1995 [id number] # The patient requires inpatient admission at this time to assure safety, receive treatment and work toward stabilization. # Q15 minute observation. # Monitor vital signs #Awaiting for [facility] , evaluation # Collaboration with Social Work to work toward discharge planning. #Monitor for EPS #Continue Abilify 10mg PO daily will discontinue tomorrow after long acting injection # Abilify Aristada 675mg first dose + subsequent dose 441mg IM scheduled for tomorrow next due 02/04/19 # If patient fails outpatient setting with support of [facility], will start process of referring to the [facility]. # Limit the amount of benzos and PRNs given and attempt behavioral control before resorting to IM PRNs Hemoglobin A1c 5.3 % (4.0-5.6) 01/03/19 11:01 Triglycerides 123 mg/dL 01/03/19 11:01 Cholesterol 141 mg/dL 01/03/19 11:01 LDL Cholesterol 68 mg/dL 01/03/19 11:01 Vital Signs Temp Pulse Resp BP Pulse Ox 98.9 F 99 16 114/72 99 01/06/19 08:19 01/06/19 08:19 01/06/19 08:19 01/06/19 08:19 01/06/19 08:19 01/08/19 Waqas is not currently accepting injectable medications. Aristata will continue to be offered. Olanzapine 10 mg continue to offer. Work with recreation therapy to reign in behaviors not consistent with a calm person. 01/11/19 Increase dose of Abilify to 15 mg Begin process of conversion to [facility]. Continue offering PRN olanzapine. Continued Medication Management: Different Medication Medications: Current Medications Acetaminophen (Tylenol Tab*) 650 mg PO Q4H PRN PRN Reason: PAIN or TEMP > 101 F Last Admin: 01/10/19 19:08 Dose: 650 mg Al Hydrox/Mg Hydrox/Simethicone (Maalox Plus*) 30 ml PO Q4H PRN PRN Reason: INDIGESTION Last Admin: 01/06/19 17:20 Dose: 30 ml Aripiprazole (Abilify Tab*) 15 mg PO DAILY [facility] Benztropine Mesylate (Cogentin Tab*) 2 mg PO BID [facility] Last Admin: 01/11/19 07:41 Dose: 2 mg Hydroxyzine HCl (Atarax Tab*) 50 mg PO Q6H PRN PRN Reason: ANXIETY/ AGITATION Last Admin: 01/10/19 15:01 Dose: 50 mg Ibuprofen (Motrin Tab*) 600 mg PO Q6H PRN PRN Reason: PAIN/FEVER Last Admin: 01/06/19 23:59 Dose: 600 mg Multivitamins (Theragran Tab*) 1 tab PO DAILY [facility] Last Admin: 01/11/19 07:41 Dose: 1 tab Olanzapine (Zyprexa *Odt*) 10 mg PO Q6H PRN PRN Reason: AGITATION Last Admin: 01/10/19 16:47 Dose: 10 mg Throat Lozenges (Chloraseptic Corina*) 1 corina PO Q6H PRN PRN Reason: SORE THROAT Last Admin: 01/10/19 01:16 Dose: 1 corina - Discharge Plan Discharge Plan: Outpatient Follow Up
[2019-01-11] MEDS: OLANzapine TAB*ODT* 10 MG TAB PO PRN (23:22)
[2019-01-11] MEDS: hydrOXYzine HCL TAB* 50 MG PO PRN (23:22)
[2019-01-12] MEDS: OLANzapine TAB*ODT* 10 MG TAB PO PRN (05:20)
[2019-01-12] MEDS: hydrOXYzine HCL TAB* 50 MG PO PRN ×2 (05:20→21:45)
[2019-01-12] MEDS: Acetaminophen TAB* 325 MG PO PRN (08:51)
[2019-01-12] MEDS: Vitamin THERAPEUTIC TAB PO SCH (08:52)
[2019-01-12] MEDS: ARIPiprazole TAB* 15 MG PO SCH (08:52)
[2019-01-12] MEDS: Benztropine TAB* 1 MG PO SCH ×2 (08:52→19:49)
[2019-01-12] MEDS: Al Hydrox/Mg Hydrox/Simet LIQ* 30 ML UDC PO PRN (17:43)
--- NOTE | 2019-01-12 20:23 | PN ---
Subjective - Subjective Date of Service: 01/12/19 Service Type: [id number] Hosp care 25 min moderate complexity Subjective: Vimal is doing somewhat better today. She is mildly disorganized and remains demanding and requires redirection. Still, she is able to retain some directions and can make her concerns better known. An ultrasound was performed on her lower left quadrant of her left buttock. Despite there being no significant findings, she has begun taking it upon herself to stretch and walk with less of a pronounced altered gait. She would like to go on staff pass tomorrow and states this is the first time she has heard of such a thing. Objective - General Observations Appearance: Disheveled Appears Stated Age: No - younger Stature: Thin, Short Posture: WNL Eye Contact: Average Behavior/Activity: Peculiar, Impulsive - Interaction Observations Attitude Towards Examiner: Cooperative, Demanding Stated Mood: Dysphoric, Irritable Affect: Labile Speech Pattern/Tone: Clear, Perseverating Thought Process: Goal Directed, Disorganized Perception: WNL Thought Content: Preoccupation/Ruminations Hallucination Type: None Delusion Type: Persecution, Somatic - Cognitive Function Orientation: A&O x 4 Level of Consciousness: Alert Cognition: WNL Estimated Intelligence: Borderline Range Insight: Difficulty Acknowledging Presence of Psyciatric Problems Judgment Within Normal Limits: No Ability to Make Reasonable Decisions: Moderately Impaired - Medication Compliance Cooperative with Inpatient Medication Regimen: Partial - Group Participation Participates in Group Activities: Partial Assessment - Assessment Merits Inpatient Hospitalization: For Immediate Safety Clinical Impression: 23 year old female that requires behavioral re direction was recently re- admitted to the [facility] after returning to live with her mother Plan - Plan Treatment Plan: Name: VIMAL BROWER Birthdate: 1995 [id number] # The patient requires inpatient admission at this time to assure safety, receive treatment and work toward stabilization. # Q15 minute observation. # Monitor vital signs #Awaiting for armen littlejohn , evaluation # Collaboration with Social Work to work toward discharge planning. #Monitor for EPS #Continue Abilify 10mg PO daily will discontinue tomorrow after long acting injection # Abilify Aristada 675mg first dose + subsequent dose 441mg IM scheduled for tomorrow next due 02/04/19 # If patient fails outpatient setting with support of [employer] [facility], will start process of referring to the [facility]. # Limit the amount of benzos and PRNs given and attempt behavioral control before resorting to IM PRNs Hemoglobin A1c 5.3 % (4.0-5.6) 01/03/19 11:01 Triglycerides 123 mg/dL 01/03/19 11:01 Cholesterol 141 mg/dL 01/03/19 11:01 LDL Cholesterol 68 mg/dL 01/03/19 11:01 Vital Signs Temp Pulse Resp BP Pulse Ox 98.9 F 99 16 114/72 99 01/06/19 08:19 01/06/19 08:19 01/06/19 08:19 01/06/19 08:19 01/06/19 08:19 01/08/19 Vimal is not currently accepting injectable medications. Aristata will continue to be offered. Olanzapine 10 mg continue to offer. Work with recreation therapy to reign in behaviors not consistent with a calm person. 01/11/19 Increase dose of Abilify to 15 mg Begin process of conversion to [facility]. Continue offering PRN olanzapine. 01/11/19 Continue to monitor for improvements or changes. Medications: Current Medications Acetaminophen (Tylenol Tab*) 650 mg PO Q4H PRN PRN Reason: PAIN or TEMP > 101 F Last Admin: 01/12/19 08:51 Dose: 650 mg Al Hydrox/Mg Hydrox/Simethicone (Maalox Plus*) 30 ml PO Q4H PRN PRN Reason: INDIGESTION Last Admin: 01/12/19 17:43 Dose: 30 ml Aripiprazole (Abilify Tab*) 15 mg PO DAILY [facility] Last Admin: 01/12/19 08:52 Dose: 15 mg Benztropine Mesylate (Cogentin Tab*) 2 mg PO BID [facility] Last Admin: 01/12/19 19:49 Dose: 2 mg Hydroxyzine HCl (Atarax Tab*) 50 mg PO Q6H PRN PRN Reason: ANXIETY/ AGITATION Last Admin: 01/12/19 05:20 Dose: 50 mg Ibuprofen (Motrin Tab*) 600 mg PO Q6H PRN PRN Reason: PAIN/FEVER Last Admin: 01/06/19 23:59 Dose: 600 mg Multivitamins (Theragran Tab*) 1 tab PO DAILY [facility] Last Admin: 01/12/19 08:52 Dose: 1 tab Olanzapine (Zyprexa *Odt*) 10 mg PO Q6H PRN PRN Reason: AGITATION Last Admin: 01/12/19 05:20 Dose: 10 mg Throat Lozenges (Chloraseptic Corina*) 1 corina PO Q6H PRN PRN Reason: SORE THROAT Last Admin: 01/10/19 01:16 Dose: 1 corina - Discharge Plan Discharge Plan: Outpatient Follow Up
[2019-01-12] MEDS: Ibuprofen TAB* 600 MG PO PRN (21:45)
[2019-01-13] MEDS: Vitamin THERAPEUTIC TAB PO SCH (09:20)
[2019-01-13] MEDS: Benztropine TAB* 1 MG PO SCH ×3 (09:20→21:29)
[2019-01-13] MEDS: ARIPiprazole TAB* 15 MG PO SCH (09:20)
[2019-01-13] MEDS: OLANzapine TAB*ODT* 10 MG TAB PO PRN ×3 (09:20→22:45)
--- NOTE | 2019-01-13 15:09 | PN ---
Subjective - Subjective Date of Service: 01/13/19 Service Type: [id number] Hosp care 35 min high complexity Subjective: Nursing Report: Patient difficult to re direct. CC: " Dont talk to me Patient was seen and evaluated by this provider. Patient reported making friends on the unit. She said that she doesnt care about the possibility of going to the [facility]. The patient said that she doesnt want to listen to anyone and wants to be in touch with her bio dad. Patient reported that she is tolerating medications without side effects. Patient got into an argument with another peer on the unit over mata that she wanted. Objective - General Observations Appearance: Unkempt Stature: WNL Posture: WNL Eye Contact: Avoidant Behavior/Activity: Slowed Separation from Parent/Guardian: Clingy, But Separates - Interaction Observations Attitude Towards Examiner: Uncooperative Attitude Towards Parent/Guardian: Demanding Stated Mood: Irritable Affect: Restricted Speech Pattern/Tone: Appropriate, Delayed Thought Process: Loose Associations Perception: Depersonalization Thought Content: Preoccupation/Ruminations Hallucination Type: Auditory Delusion Type: Denies - Cognitive Function Orientation: A&O x 4 Level of Consciousness: Awake Cognition: Impaired Ability to Abstract Estimated Intelligence: Borderline Range Insight: Mostly Blames Others for Problems Judgment Within Normal Limits: No Ability to Make Reasonable Decisions: Serverely Impaired - Medication Compliance Cooperative with Inpatient Medication Regimen: Partial - Group Participation Participates in Group Activities: No Assessment - Assessment Clinical Impression: 23 year old female that requires behavioral re direction was recently re- admitted to the [facility] after returning to live with her mother Plan - Plan Treatment Plan: Name: WAQAS BROWER Birthdate: 1995 [id number] # The patient requires inpatient admission at this time to assure safety, receive treatment and work toward stabilization. # Q15 minute observation. # Collaboration with Social Work to work toward discharge planning. #Continue to Monitor for EPS # Begin process for [facility] referral Vital Signs Temp Pulse Resp BP Pulse Ox 99.1 F 92 16 124/78 100 01/13/19 09:34 01/11/19 18:51 01/13/19 14:53 01/11/19 18:51 01/13/19 09:34 Hemoglobin A1c 5.3 % (4.0-5.6) 01/03/19 11:01 Triglycerides 123 mg/dL 01/03/19 11:01 Cholesterol 141 mg/dL 01/03/19 11:01 LDL Cholesterol 68 mg/dL 01/03/19 11:01 Continued Medication Management: Continue Outpt Medication Medications: Current Medications Acetaminophen (Tylenol Tab*) 650 mg PO Q4H PRN PRN Reason: PAIN or TEMP > 101 F Last Admin: 01/12/19 08:51 Dose: 650 mg Al Hydrox/Mg Hydrox/Simethicone (Maalox Plus*) 30 ml PO Q4H PRN PRN Reason: INDIGESTION Last Admin: 01/12/19 17:43 Dose: 30 ml Aripiprazole (Abilify Tab*) 15 mg PO DAILY [facility] Last Admin: 01/13/19 09:20 Dose: 15 mg Benztropine Mesylate (Cogentin Tab*) 2 mg PO BID [facility] Last Admin: 01/13/19 09:20 Dose: 2 mg Hydroxyzine HCl (Atarax Tab*) 50 mg PO Q6H PRN PRN Reason: ANXIETY/AGITATION/insomnia Ibuprofen (Motrin Tab*) 600 mg PO Q6H PRN PRN Reason: PAIN/FEVER Last Admin: 01/12/19 21:45 Dose: 600 mg Multivitamins (Theragran Tab*) 1 tab PO DAILY [facility] Last Admin: 01/13/19 09:20 Dose: Not Given Olanzapine (Zyprexa *Odt*) 10 mg PO Q6H PRN PRN Reason: AGITATION Last Admin: 01/13/19 09:20 Dose: 10 mg Throat Lozenges (Chloraseptic Corina*) 1 corina PO Q6H PRN PRN Reason: SORE THROAT Last Admin: 01/10/19 01:16 Dose: 1 corina - Discharge Plan Discharge Plan: Inpatient Hospitalization
[2019-01-13] MEDS: hydrOXYzine HCL TAB* 50 MG PO PRN ×2 (16:28→22:45)
--- NOTE | 2019-01-13 16:36 | PN ---
BSU: Group Therapy Note - Service Type Service Type: [id number] Group Psychotherapy - Medication Education Group: Patient presented as disorganized and disruptive in discussion and needed repeated redirection to attend to presented materials.
[2019-01-14] MEDS: Benztropine TAB* 1 MG PO SCH ×2 (08:40→20:30)
[2019-01-14] MEDS: ARIPiprazole TAB* 15 MG PO SCH (08:40)
[2019-01-14] MEDS: Vitamin THERAPEUTIC TAB PO SCH (08:44)
--- NOTE | 2019-01-14 15:20 | PN ---
Subjective - Subjective Date of Service: 01/14/19 Service Type: [id number] Hosp care 35 min high complexity Subjective: Nursing Report: Patient was visible on unit acting defiant towards staff re- direction Slept overnight 4 hours. CC: " I do not want to go to the [facility]" Patient was seen and evaluated in the common room. Patient said that she refuses to go to the [facility]. She said that she wants to stay in the hospital and walked away. Patient partially attended administrative hearing. Her gastroenterology teacher visited overnight and she would not allow her to leave. Her former gastroenterology teacher Pau, reported that she is not at her baseline and is much different than she remembers. Objective - General Observations Appears Stated Age: Yes Stature: WNL Posture: WNL Eye Contact: Avoidant Behavior/Activity: Impulsive Separation from Parent/Guardian: Cannot Separate - Interaction Observations Attitude Towards Examiner: Uncooperative Attitude Towards Parent/Guardian: Immature Stated Mood: Expansive Affect: Labile Speech Pattern/Tone: Loud Volume Thought Process: [place] Perception: Derealization Thought Content: Obsessional Thought Process: Lethality: Paranoid Ideation Hallucination Type: Denies Delusion Type: Denies - Cognitive Function Orientation: A&O x 4 Level of Consciousness: Awake Cognition: Impaired Ability to Abstract Estimated Intelligence: Borderline Range Insight: Difficulty Acknowledging Presence of Psyciatric Problems Judgment Within Normal Limits: No Ability to Make Reasonable Decisions: Serverely Impaired - Medication Compliance Cooperative with Inpatient Medication Regimen: Partial - Group Participation Participates in Group Activities: No Assessment - Assessment Clinical Impression: 23 year old female that requires behavioral re direction was recently re- admitted to the [facility] after returning to live with her mother Plan - Plan Treatment Plan: Name: WAQAS BROWER Birthdate: 1995 [id number] # The patient requires inpatient admission at this time to assure safety, receive treatment and work toward stabilization. # Q15 minute observation. # Collaboration with Social Work to work toward discharge planning. #Admin hearing ruled in favor state hospitalization. # Begin process for state hospital referral Continued Medication Management: Continue Outpt Medication Medications: Current Medications Acetaminophen (Tylenol Tab*) 650 mg PO Q4H PRN PRN Reason: PAIN or TEMP > 101 F Last Admin: 01/12/19 08:51 Dose: 650 mg Al Hydrox/Mg Hydrox/Simethicone (Maalox Plus*) 30 ml PO Q4H PRN PRN Reason: INDIGESTION Last Admin: 01/12/19 17:43 Dose: 30 ml Aripiprazole (Abilify Tab*) 15 mg PO DAILY [facility] Last Admin: 01/14/19 08:40 Dose: 15 mg Benztropine Mesylate (Cogentin Tab*) 2 mg PO BID [facility] Last Admin: 01/14/19 08:40 Dose: 2 mg Hydroxyzine HCl (Atarax Tab*) 50 mg PO Q6H PRN PRN Reason: ANXIETY/AGITATION/insomnia Last Admin: 01/13/19 22:45 Dose: 50 mg Ibuprofen (Motrin Tab*) 600 mg PO Q6H PRN PRN Reason: PAIN/FEVER Last Admin: 01/12/19 21:45 Dose: 600 mg Multivitamins (Theragran Tab*) 1 tab PO DAILY [facility] Last Admin: 01/14/19 08:44 Dose: Not Given Olanzapine (Zyprexa *Odt*) 10 mg PO Q6H PRN PRN Reason: AGITATION Last Admin: 01/13/19 22:45 Dose: 10 mg Throat Lozenges (Chloraseptic Corina*) 1 corina PO Q6H PRN PRN Reason: SORE THROAT Last Admin: 01/10/19 01:16 Dose: 1 corina - Discharge Plan Discharge Plan: Inpatient Hospitalization
[2019-01-14] MEDS: OLANzapine TAB*ODT* 10 MG TAB PO PRN (21:10)
[2019-01-14] MEDS: hydrOXYzine HCL TAB* 50 MG PO PRN (23:18)
[2019-01-14] MEDS: Ibuprofen TAB* 600 MG PO PRN (23:18)
[2019-01-15] MEDS: ARIPiprazole TAB* 15 MG PO SCH (07:49)
[2019-01-15] MEDS: Benztropine TAB* 1 MG PO SCH ×2 (07:49→20:46)
[2019-01-15] MEDS: Vitamin THERAPEUTIC TAB PO SCH (07:50)
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
[2019-01-15] MEDS: hydrOXYzine HCL TAB* 50 MG PO PRN (20:45)
[2019-01-15] MEDS: OLANzapine TAB*ODT* 10 MG TAB PO PRN (20:46)
[2019-01-16] MEDS: Benztropine TAB* 1 MG PO SCH ×2 (08:59→22:11)
[2019-01-16] MEDS: ARIPiprazole TAB* 15 MG PO SCH (08:59)
[2019-01-16] MEDS: Vitamin THERAPEUTIC TAB PO SCH (09:00)
[2019-01-16] MEDS: Acetaminophen TAB* 325 MG PO PRN (14:03)
[2019-01-16] MEDS: OLANzapine TAB*ODT* 10 MG TAB PO PRN ×2 (16:48→23:40)
[2019-01-16] MEDS ORDERED: chlorproMAZINE TAB* 100 MG PO ONE (18:00)
[2019-01-16] MEDS ORDERED: chlorproMAZINE TAB* 100 MG ONE (18:07)
[2019-01-16] MEDS ORDERED: diPHENhydraMINE PO* 50 MG PO ONE (20:50)
[2019-01-16] MEDS ORDERED: diPHENhydraMINE PO* 50 MG ONE (20:51)
[2019-01-16] MEDS: Ibuprofen TAB* 600 MG PO PRN (23:40)
[2019-01-16] MEDS: hydrOXYzine HCL TAB* 50 MG PO PRN (23:40)
[2019-01-17] MEDS: Benztropine TAB* 1 MG PO SCH ×2 (08:08→20:34)
[2019-01-17] MEDS: ARIPiprazole TAB* 15 MG PO SCH (08:08)
[2019-01-17] MEDS: Vitamin THERAPEUTIC TAB PO SCH (08:09)
[2019-01-17] MEDS: hydrOXYzine HCL TAB* 50 MG PO PRN ×2 (16:14→22:48)
[2019-01-17] MEDS: OLANzapine TAB*ODT* 10 MG TAB PO PRN (22:48)
[2019-01-17] MEDS ORDERED: LORazepam INJ* 2 MG/ML 1 ML VIAL IM ONE (23:52)
[2019-01-17] MEDS ORDERED: clonazePAM TAB(*) 1 MG PO ONE (23:52)
[2019-01-17] MEDS ORDERED: clonazePAM TAB(*) 1 MG ONE (23:55)
[2019-01-17] MEDS ORDERED: LORazepam INJ* 2 MG/ML 1 ML VIAL ONE (23:58)
[2019-01-18] MEDS: Benztropine TAB* 1 MG PO SCH (08:40)
[2019-01-18] MEDS: ARIPiprazole TAB* 15 MG PO SCH (08:40)
[2019-01-18] MEDS: Vitamin THERAPEUTIC TAB PO SCH (08:40)
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
[2019-01-18] MEDS: OLANzapine TAB*ODT* 10 MG TAB PO PRN ×2 (15:42→21:53)
[2019-01-18] MEDS: hydrOXYzine HCL TAB* 50 MG PO PRN ×2 (15:42→21:53)
[2019-01-18] MEDS: clonazePAM TAB(*) 1 MG PO PRN (15:42)
[2019-01-19] MEDS: ARIPiprazole TAB* 15 MG PO SCH (10:16)
[2019-01-19] MEDS: Vitamin THERAPEUTIC TAB PO SCH (10:16)
[2019-01-19] MEDS: clonazePAM TAB(*) 1 MG PO PRN (11:41)
--- NOTE | 2019-01-19 15:38 | PN ---
Subjective - Subjective Date of Service: 01/19/19 Service Type: [id number] Hosp care 35 min high complexity Subjective: Nursing Report: Patient was visible on unit being defiant and intrusive with staff and peers CC: "I want my dad to discharge me " Patient was seen and evaluated in the common room. Patient continues to think that another peer is her father and that her boyfriend can come discharge her. Patient reported that she want to move in with her boyfriend. Patient informed of state hospital transfer on . Objective - General Observations Appearance: Unkempt Appears Stated Age: Yes Stature: WNL Posture: WNL Eye Contact: Avoidant Behavior/Activity: WNL - Interaction Observations Attitude Towards Examiner: Evasive Affect: Incongruent Speech Pattern/Tone: Rambling Thought Process: Tangential Perception: WNL Thought Content: WNL Hallucination Type: Denies Delusion Type: Denies - Cognitive Function Orientation: A&O x 4 Level of Consciousness: Awake, Lethargic Cognition: WNL Estimated Intelligence: Borderline Range Insight: Mostly Blames Others for Problems Judgment Within Normal Limits: No Ability to Make Reasonable Decisions: Serverely Impaired - Medication Compliance Cooperative with Inpatient Medication Regimen: Yes - Group Participation Participates in Group Activities: Partial Assessment - Assessment Clinical Impression: 23 year old female that requires behavioral re direction was recently re- admitted to the [facility] after returning to live with her mother Plan - Plan Treatment Plan: Name: WAQAS BROWER Birthdate: 1995 [id number] # The patient requires inpatient admission at this time to assure safety, receive treatment and work toward stabilization. # Q15 minute observation. #Admin hearing ruled in favor state hospitalization. # State hospital transfer planed for Vital Signs Temp Pulse Resp BP Pulse Ox 98.1 F 101 16 108/74 100 01/18/19 07:58 01/18/19 07:58 01/19/19 13:54 01/18/19 07:58 01/18/19 07:58 Hemoglobin A1c 5.3 % (4.0-5.6) 01/03/19 11:01 Triglycerides 123 mg/dL 01/03/19 11:01 Cholesterol 141 mg/dL 01/03/19 11:01 LDL Cholesterol 68 mg/dL 01/03/19 11:01 Continued Medication Management: Continue Outpt Medication Medications: Current Medications Acetaminophen (Tylenol Tab*) 650 mg PO Q4H PRN PRN Reason: PAIN or TEMP > 101 F Last Admin: 01/16/19 14:03 Dose: 650 mg Al Hydrox/Mg Hydrox/Simethicone (Maalox Plus*) 30 ml PO Q4H PRN PRN Reason: INDIGESTION Last Admin: 01/12/19 17:43 Dose: 30 ml Aripiprazole (Abilify Tab*) 15 mg PO DAILY [facility] Last Admin: 01/19/19 10:16 Dose: 15 mg Clonazepam (Klonopin Tab(*)) 1 mg PO Q8H PRN PRN Reason: ANXIETY Last Admin: 01/19/19 11:41 Dose: 1 mg Hydroxyzine HCl (Atarax Tab*) 50 mg PO Q6H PRN PRN Reason: ANXIETY/AGITATION/insomnia Last Admin: 01/18/19 21:53 Dose: 50 mg Ibuprofen (Motrin Tab*) 600 mg PO Q6H PRN PRN Reason: PAIN/FEVER Last Admin: 01/16/19 23:40 Dose: 600 mg Multivitamins (Theragran Tab*) 1 tab PO DAILY [facility] Last Admin: 01/19/19 10:16 Dose: Not Given Olanzapine (Zyprexa *Odt*) 10 mg PO Q6H PRN PRN Reason: AGITATION Last Admin: 01/18/19 21:53 Dose: 10 mg Throat Lozenges (Chloraseptic Corina*) 1 corina PO Q6H PRN PRN Reason: SORE THROAT Last Admin: 01/10/19 01:16 Dose: 1 corina - Discharge Plan Discharge Plan: Inpatient Hospitalization
[2019-01-19] MEDS: hydrOXYzine HCL TAB* 50 MG PO PRN (16:04)
[2019-01-19] MEDS: OLANzapine TAB*ODT* 10 MG TAB PO PRN (16:04)
[2019-01-19] MEDS: clonazePAM TAB(*) 1 MG PO SCH (19:59)
[2019-01-19] MEDS ORDERED: Valproic Acid CAP(*) 250 MG PO ONE (20:00)
[2019-01-20] MEDS: Vitamin THERAPEUTIC TAB PO SCH (08:26)
[2019-01-20] MEDS: Valproic Acid CAP(*) 250 MG PO SCH ×2 (08:26→20:07)
[2019-01-20] MEDS: clonazePAM TAB(*) 1 MG PO SCH ×2 (08:26→20:08)
[2019-01-20] MEDS: ARIPiprazole TAB* 15 MG PO SCH (08:27)
[2019-01-20 08:55] LABS: HCG Pregnancy 0.96 mIU/mL
--- NOTE | 2019-01-20 15:11 | PN ---
Subjective - Subjective Date of Service: 01/20/19 Service Type: [id number] Hosp care 35 min high complexity Subjective: Nursing Report: Patient had visitor overnight, no behavioral disturbance overnight. CC: "I want to see Ki" Patient was seen and evaluated in the common room. She said that she really liked seeing her boyfriend last night. He reported having an adequate appetite and sleep. Patient reported tolerating medications without side effects. Objective - General Observations Appears Stated Age: Yes Stature: WNL Posture: WNL Eye Contact: Average Behavior/Activity: Impulsive Separation from Parent/Guardian: Cannot Separate - Interaction Observations Attitude Towards Examiner: Evasive Stated Mood: Expansive Affect: Labile Speech Pattern/Tone: Excessive Thought Process: Loose Associations Perception: WNL Thought Content: Preoccupation/Ruminations Hallucination Type: None Delusion Type: None - Cognitive Function Orientation: A&O x 4 Level of Consciousness: Awake Cognition: Impaired Cognition Estimated Intelligence: Borderline Range Insight: Difficulty Acknowledging Presence of Psyciatric Problems Judgment Within Normal Limits: No Ability to Make Reasonable Decisions: Serverely Impaired - Medication Compliance Cooperative with Inpatient Medication Regimen: Yes - Group Participation Participates in Group Activities: Partial Assessment - Assessment Clinical Impression: 23 year old female that requires behavioral re direction was recently re- admitted to the [facility] after returning to live with her mother Plan - Plan Treatment Plan: Name: WAQAS BROWER Birthdate: 1995 [id number] # The patient requires inpatient admission at this time to assure safety, receive treatment and work toward stabilization. # Q15 minute observation. # Plan for State hospital transfer tomorrow. #Start depakote 500mg BID and scheduled klonopin 1mg BID Patient had visitor Ki overnight. Laboratory Results - last 24 hr 01/20/19 07:46 Total Creatine Kinase 108 Beta HCG, Quant 0.96 Hemoglobin A1c 5.3 % (4.0-5.6) 01/03/19 11:01 Triglycerides 123 mg/dL 01/03/19 11:01 Cholesterol 141 mg/dL 01/03/19 11:01 LDL Cholesterol 68 mg/dL 01/03/19 11:01 Vital Signs Temp Pulse Resp BP Pulse Ox 98.7 F 81 16 102/82 100 01/20/19 07:29 01/20/19 07:29 01/20/19 11:53 01/20/19 07:29 01/20/19 07:29 Continued Medication Management: Continue Outpt Medication Medications: Current Medications Acetaminophen (Tylenol Tab*) 650 mg PO Q4H PRN PRN Reason: PAIN or TEMP > 101 F Last Admin: 01/16/19 14:03 Dose: 650 mg Al Hydrox/Mg Hydrox/Simethicone (Maalox Plus*) 30 ml PO Q4H PRN PRN Reason: INDIGESTION Last Admin: 01/12/19 17:43 Dose: 30 ml Aripiprazole (Abilify Tab*) 15 mg PO DAILY [facility] Last Admin: 01/20/19 08:27 Dose: 15 mg Clonazepam (Klonopin Tab(*)) 1 mg PO BID [facility] Last Admin: 01/20/19 08:26 Dose: 1 mg Hydroxyzine HCl (Atarax Tab*) 50 mg PO Q6H PRN PRN Reason: ANXIETY/AGITATION/insomnia Last Admin: 01/19/19 16:04 Dose: 50 mg Ibuprofen (Motrin Tab*) 600 mg PO Q6H PRN PRN Reason: PAIN/FEVER Last Admin: 01/16/19 23:40 Dose: 600 mg Multivitamins (Theragran Tab*) 1 tab PO DAILY [facility] Last Admin: 01/20/19 08:26 Dose: 1 tab Olanzapine (Zyprexa *Odt*) 10 mg PO Q6H PRN PRN Reason: AGITATION Last Admin: 01/19/19 16:04 Dose: 10 mg Throat Lozenges (Chloraseptic Corina*) 1 corina PO Q6H PRN PRN Reason: SORE THROAT Last Admin: 01/10/19 01:16 Dose: 1 corina Valproic Acid (Depakene Cap(*)) 500 mg PO BID [facility] Last Admin: 01/20/19 08:26 Dose: 500 mg - Discharge Plan Discharge Plan: Inpatient Hospitalization
[2019-01-20] MEDS: Acetaminophen TAB* 325 MG PO PRN (20:10)
[2019-01-21] MEDS: OLANzapine TAB*ODT* 10 MG TAB PO PRN (02:30)
[2019-01-21] MEDS: clonazePAM TAB(*) 1 MG PO SCH (08:54)
[2019-01-21] MEDS: ARIPiprazole TAB* 15 MG PO SCH (08:55)
[2019-01-21] MEDS: Vitamin THERAPEUTIC TAB PO SCH (08:55)
[2019-01-21] MEDS ORDERED: Valproic Acid LIQ(*) 250 MG/5 ML UDC PO SCH (09:00)
[2019-01-21 09:46] VITALS: BP 116/78
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
== END 2019-01-21 13:00 | disposition short-term general hospital (02) | DRG 885 ==
LOC: ED 09:41 → BSU 14:42
PROVIDERS: ADMIT Psychiatry & Neurology Psychiatry; ATTEND Psychiatry & Neurology Psychiatry
PROC: GZHZZZZ Group Psychotherapy (ICD-10-PCS; principal; 2019-01-13)
DX: F25.9 Schizoaffective disorder, unspecified (principal); F19.951 Other psychoactive substance use, unspecified with psychoactive substance-induced psychotic disorder with hallucinations; F43.10 Post-traumatic stress disorder, unspecified; Z81.8 Family history of other mental and behavioral disorders; Z81.1 Family history of alcohol abuse and dependence; Z81.3 Family history of other psychoactive substance abuse and dependence; Z56.0 Unemployment, unspecified
CPT/HCPCS: 36415; 80061; 82550; 83036; 84702; 90853; 99222; 99232; 99233; 99238; 99285; A9270-GY; J1200; J1630; J2060

== ENCOUNTER 2021-05-13 12:47 | Inpatient (IN) ==
[2021-05-13] MEDS ORDERED: LORazepam 2 mg VIAL 1 ml IM ONE (13:08)
[2021-05-13] MEDS ORDERED: diPHENhydraMINE IV 50 MG/ML 1 ml VIAL (BENADRYL) IM ONE (13:08)
[2021-05-13] MEDS ORDERED: Haloperidol 5 mg/ml SDV IV/IM 5 MG/ML AMP IM ONE (13:08)
[2021-05-13] MEDS ORDERED: Lorazepam PYXIS KEY PRN (13:08)
[2021-05-13 20:50] LABS: ABS Eosinophils 0.2 10^3/ul (0-0.6); ABS Lymphocytes 3.2 10^3/ul (1.0-4.8); ABS Monocytes 0.7 10^3/ul (0-0.8); ABS Neutrophils 3.4 10^3/ul (1.5-7.7); Eosinophil % 3.2 %; Hematocrit 39 % (35-47); Hemoglobin 13.2 g/dL (12.0-16.0); Lymphocyte % 42.2 %; Mean Corpuscular HGB Conc 34 g/dL (31-36); Mean Corpuscular Hemoglobin 31 pg (27-31); Mean Corpuscular Volume 93 fL (80-97); Nucleated Red Blood Cells % 0.1; Platelet Count 277 10^3/uL (150-450); Red Blood Count 4.24 10^6 /uL (3.70-4.87); Red Cell Distribution Width 14 % (10-15); White Blood Count 7.5 10^3/uL (3.5-10.8)
[2021-05-13 21:07] LABS: ALT 31 U/L (7-52); AST 32 U/L (13-39); Albumin 4.6 g/dL (3.2-5.2); Albumin/Globulin Ratio 1.6 (1-3); Alkaline Phosphatase 62 U/L (35-149); Anion Gap 7 mmol/L (2-11); Blood Urea Nitrogen 9 mg/dL (6-24); CO2 Carbon Dioxide 25 mmol/L (22-32); Calcium 9.5 mg/dL (8.6-10.3); Chloride 105 mmol/L (101-111); EGFR African American 88.2 (>60); EGFR Non-African American 72.9 (>60); Globulin 2.8 g/dL (2-4); Glucose 69 mg/dL (70-100); Potassium 3.7 mmol/L (3.5-5.0); Sodium 137 mmol/L (135-145); Total Protein 7.4 g/dL (6.4-8.9)
[2021-05-13 21:13] LABS: HCG Pregnancy < 0.60 mIU/mL
[2021-05-13 21:48] LABS: Acetaminophen < 15 mcg/mL; Alcohol, S < 10 mg/dL (<10); Salicylate < 2.50 mg/dL (<30)
[2021-05-13 22:03] LABS: TSH Ultra Thyroid Stim Horm 2.12 mcIU/mL (0.34-5.60)
[2021-05-14 03:43] LABS: Urine Appearance Cloudy; Urine Bilirubin Negative (Negative); Urine Blood Negative (Negative); Urine Color Amber; Urine Glucose Negative (Negative); Urine Ketones Trace (Negative); Urine Nitrite Negative (Negative); Urine Protein 1+(30 mg/dL) (Negative); Urine Specific Gravity 1.029 (1.002-1.030); Urine Urobilinogen Negative (Negative)
[2021-05-14 03:59] LABS: Urine Benzodiazepine Screen None Detected (None Detect); Urine Cannabinoids Screen None Detected (None Detect); Urine Opiates Screen None Detected (None Detect)
[2021-05-14 04:03] LABS: Urine Bacteria Absent (Absent); Urine Red Blood Cell Absent (Absent); Urine Squamous Epithelial Cell Present (Absent); Urine White Blood Cell Absent (Absent)
[2021-05-14] MEDS ORDERED: Sterile Water for Inj 10 ML ONE (05:46)
[2021-05-14] MEDS: Nicotine GUM 4MG FRUIT FLAVOR PO PRN ×2 (09:07→15:28)
[2021-05-14] MEDS: OLANzapine 5 mg TAB*ODT PO SCH (23:35)
[2021-05-15] MEDS: Nicotine PATCH 21 MG/24 HR PATCH TRANSDERM SCH (08:25)
[2021-05-15] MEDS: OLANzapine 5 mg TAB*ODT PO SCH ×2 (08:26→20:47)
[2021-05-15] MEDS: Nicotine GUM 4MG FRUIT FLAVOR PO PRN ×4 (08:26→21:02)
[2021-05-15] MEDS: Vitamin THERAPEUTIC TAB PO SCH (10:09)
[2021-05-15 13:41] LABS: Chlamydia trachomatis NAA Negative (Negative); Neisseria gonorrhoeae (GC) NAA Negative (Negative)
[2021-05-15] MEDS: Al Hydrox/Mg Hydrox/Simet LIQ 30 ML UDC PO PRN (21:21)
[2021-05-16] MEDS: Nicotine GUM 4MG FRUIT FLAVOR PO PRN ×3 (06:37→22:18)
[2021-05-16] MEDS: Vitamin THERAPEUTIC TAB PO SCH (12:15)
[2021-05-16] MEDS: Nicotine PATCH 21 MG/24 HR PATCH TRANSDERM SCH (12:15)
[2021-05-16] MEDS: OLANzapine 5 mg TAB*ODT PO SCH (12:16)
[2021-05-16] MEDS: Al Hydrox/Mg Hydrox/Simet LIQ 30 ML UDC PO PRN (22:14)
[2021-05-17] MEDS: Nicotine PATCH 21 MG/24 HR PATCH TRANSDERM SCH (09:04)
[2021-05-17] MEDS: Vitamin THERAPEUTIC TAB PO SCH (09:06)
[2021-05-17] MEDS: Nicotine GUM 4MG FRUIT FLAVOR PO PRN ×3 (09:07→20:10)
[2021-05-18] MEDS: Nicotine PATCH 21 MG/24 HR PATCH TRANSDERM SCH (09:10)
[2021-05-18] MEDS: Vitamin THERAPEUTIC TAB PO SCH ×2 (09:11→11:43)
[2021-05-18] MEDS: Nicotine GUM 4MG FRUIT FLAVOR PO PRN ×5 (09:19→20:46)
[2021-05-18] MEDS: Albuterol HFA INHALER 8 gm MDI INH PRN (14:31)
[2021-05-18] MEDS: Al Hydrox/Mg Hydrox/Simet LIQ 30 ML UDC PO PRN (14:31)
[2021-05-19] MEDS: Nicotine PATCH 21 MG/24 HR PATCH TRANSDERM SCH (09:04)
[2021-05-19] MEDS: Vitamin THERAPEUTIC TAB PO SCH (09:05)
[2021-05-19] MEDS: Albuterol HFA INHALER 8 gm MDI INH PRN ×3 (09:07→19:55)
[2021-05-19] MEDS: Nicotine GUM 4MG FRUIT FLAVOR PO PRN ×4 (09:07→19:56)
[2021-05-19] MEDS: Al Hydrox/Mg Hydrox/Simet LIQ 30 ML UDC PO PRN (13:00)
[2021-05-20] MEDS: Nicotine GUM 4MG FRUIT FLAVOR PO PRN ×3 (06:33→20:43)
[2021-05-20] MEDS: Albuterol HFA INHALER 8 gm MDI INH PRN ×2 (06:41→21:48)
[2021-05-20] MEDS: Nicotine PATCH 21 MG/24 HR PATCH TRANSDERM SCH (07:57)
[2021-05-20] MEDS: Vitamin THERAPEUTIC TAB PO SCH (08:05)
[2021-05-21] MEDS: Nicotine GUM 4MG FRUIT FLAVOR PO PRN ×2 (06:42→10:39)
[2021-05-21] MEDS: Vitamin THERAPEUTIC TAB PO SCH (07:41)
[2021-05-21] MEDS: Albuterol HFA INHALER 8 gm MDI INH PRN ×2 (07:44→20:01)
[2021-05-21] MEDS: Nicotine PATCH 21 MG/24 HR PATCH TRANSDERM SCH (07:45)
[2021-05-22] MEDS: Vitamin THERAPEUTIC TAB PO SCH (08:08)
[2021-05-22] MEDS: Albuterol HFA INHALER 8 gm MDI INH PRN ×3 (08:09→22:48)
[2021-05-22] MEDS: Nicotine PATCH 21 MG/24 HR PATCH TRANSDERM SCH (08:11)
[2021-05-22] MEDS: Nicotine GUM 4MG FRUIT FLAVOR PO PRN ×3 (08:11→22:46)
[2021-05-23] MEDS: Nicotine PATCH 21 MG/24 HR PATCH TRANSDERM SCH (08:01)
[2021-05-23] MEDS: Vitamin THERAPEUTIC TAB PO SCH (08:01)
[2021-05-23] MEDS: Nicotine GUM 4MG FRUIT FLAVOR PO PRN ×2 (08:39→15:28)
[2021-05-23] MEDS: Al Hydrox/Mg Hydrox/Simet LIQ 30 ML UDC PO PRN ×2 (08:39→12:57)
[2021-05-23] MEDS: Albuterol HFA INHALER 8 gm MDI INH PRN ×2 (08:45→16:56)
[2021-05-23] MEDS ORDERED: PAIN RELIEVING RUB (MENTHOL/SALICYLATE) 1 APPLIC TUBE TOPICAL PRN (16:13)
[2021-05-24] MEDS: Nicotine PATCH 21 MG/24 HR PATCH TRANSDERM SCH (09:08)
[2021-05-24] MEDS: Vitamin THERAPEUTIC TAB PO SCH (09:09)
[2021-05-24] MEDS: Nicotine GUM 4MG FRUIT FLAVOR PO PRN ×4 (09:09→19:15)
[2021-05-24 11:31] LABS: Hepatitis B Surface Antigen Nonreactive (Nonreactive)
[2021-05-24 11:37] LABS: Hepatitis A Ab IgM Negative (Negative)
[2021-05-24 11:38] LABS: Hepatitis B Core IgM Nonreactive (Nonreactive)
[2021-05-24 11:40] LABS: HIV 4th Generation Nonreactive (Nonreactive)
[2021-05-24 11:49] LABS: Hepatitis C Antibody Negative (Negative)
[2021-05-25] MEDS: Vitamin THERAPEUTIC TAB PO SCH (09:00)
[2021-05-25] MEDS: Nicotine PATCH 21 MG/24 HR PATCH TRANSDERM SCH (09:01)
[2021-05-25] MEDS: Nicotine GUM 4MG FRUIT FLAVOR PO PRN ×2 (09:33→14:55)
[2021-05-25] MEDS: Albuterol HFA INHALER 8 gm MDI INH PRN (15:57)
[2021-05-26] MEDS: Nicotine PATCH 21 MG/24 HR PATCH TRANSDERM SCH (08:18)
[2021-05-26] MEDS: Vitamin THERAPEUTIC TAB PO SCH (08:18)
[2021-05-26] MEDS: Nicotine GUM 4MG FRUIT FLAVOR PO PRN ×4 (13:11→21:11)
[2021-05-26 13:15] LABS: Urine Appearance Cloudy; Urine Bilirubin Negative (Negative); Urine Blood Negative (Negative); Urine Color Yellow; Urine Glucose Negative (Negative); Urine Ketones Negative (Negative); Urine Nitrite Negative (Negative); Urine Protein Negative (Negative); Urine Specific Gravity 1.016 (1.002-1.030); Urine Urobilinogen Negative (Negative)
[2021-05-26 13:39] LABS: Urine Bacteria Absent (Absent); Urine Red Blood Cell Trace(0-2/hpf) (Absent); Urine Squamous Epithelial Cell Present (Absent); Urine White Blood Cell 1+(6-10/hpf) (Absent)
[2021-05-27] MEDS: Vitamin THERAPEUTIC TAB PO SCH (07:39)
[2021-05-27] MEDS: Nicotine GUM 4MG FRUIT FLAVOR PO PRN ×6 (07:40→19:57)
[2021-05-27] MEDS: Nicotine PATCH 21 MG/24 HR PATCH TRANSDERM SCH (07:40)
[2021-05-27] MEDS: Al Hydrox/Mg Hydrox/Simet LIQ 30 ML UDC PO PRN (18:27)
[2021-05-28] MEDS: Nicotine PATCH 21 MG/24 HR PATCH TRANSDERM SCH (08:20)
[2021-05-28] MEDS: Vitamin THERAPEUTIC TAB PO SCH (08:20)
[2021-05-28] MEDS: Nicotine GUM 4MG FRUIT FLAVOR PO PRN ×5 (08:23→19:44)
[2021-05-29] MEDS: Nicotine PATCH 21 MG/24 HR PATCH TRANSDERM SCH (08:14)
[2021-05-29] MEDS: Vitamin THERAPEUTIC TAB PO SCH (08:15)
[2021-05-29] MEDS: Nicotine GUM 4MG FRUIT FLAVOR PO PRN ×5 (08:17→18:20)
[2021-05-29] MEDS: Albuterol HFA INHALER 8 gm MDI INH PRN (09:31)
[2021-05-29] MEDS ORDERED: COVID-19 VACCINE, MRNA(MODERNA)/PF 100 MCG/0.5 ML IM ONE (17:00)
[2021-05-29] MEDS: Magnesium CITRATE LIQ 300 ML BTL PO ONE ×2 (19:42→20:32)
[2021-05-29] MEDS: Polyethylene Glycol 3350 17 GM PACKET PO SCH (20:34)
[2021-05-30] MEDS: Vitamin THERAPEUTIC TAB PO SCH (07:41)
[2021-05-30] MEDS: Polyethylene Glycol 3350 17 GM PACKET PO SCH ×2 (07:42→20:20)
[2021-05-30] MEDS: Nicotine PATCH 21 MG/24 HR PATCH TRANSDERM SCH (07:42)
[2021-05-30] MEDS: Nicotine GUM 4MG FRUIT FLAVOR PO PRN ×4 (08:45→18:59)
[2021-05-30] MEDS: Albuterol HFA INHALER 8 gm MDI INH PRN (19:47)
[2021-05-31] MEDS: Nicotine PATCH 21 MG/24 HR PATCH TRANSDERM SCH (07:55)
[2021-05-31] MEDS: Polyethylene Glycol 3350 17 GM PACKET PO SCH ×2 (07:56→20:15)
[2021-05-31] MEDS: Albuterol HFA INHALER 8 gm MDI INH PRN (07:57)
[2021-05-31] MEDS: Vitamin THERAPEUTIC TAB PO SCH (07:58)
[2021-05-31] MEDS: Nicotine GUM 4MG FRUIT FLAVOR PO PRN ×5 (08:11→20:17)
[2021-06-01] MEDS: Polyethylene Glycol 3350 17 GM PACKET PO SCH (07:27)
[2021-06-01] MEDS: Nicotine PATCH 21 MG/24 HR PATCH TRANSDERM SCH (07:28)
[2021-06-01] MEDS: Vitamin THERAPEUTIC TAB PO SCH (07:59)
[2021-06-01] MEDS: Nicotine GUM 4MG FRUIT FLAVOR PO PRN (08:00)
[2021-06-01 08:24] VITALS: BP 109/64
== END 2021-06-01 12:30 | disposition home or self-care (01) | DRG 885 ==
LOC: ED 12:47 → BSU 05-14 09:39
PROVIDERS: ADMIT Psychiatry & Neurology Psychiatry; ATTEND Psychiatry & Neurology Psychiatry

== ENCOUNTER 2021-06-10 16:06 | Inpatient (IN) ==
[2021-06-10] MEDS ORDERED: Haloperidol 5 mg/ml SDV IV/IM 5 MG/ML AMP IM ONE (16:13)
[2021-06-10] MEDS ORDERED: diPHENhydraMINE IV 50 MG/ML 1 ml VIAL (BENADRYL) IM ONE (16:14)
[2021-06-10] MEDS ORDERED: LORazepam 2 mg VIAL 1 ml IM ONE (16:17)
[2021-06-10] MEDS ORDERED: Lorazepam PYXIS KEY PRN ×2 (16:17→19:37)
[2021-06-10] MEDS ORDERED: PAIN RELIEVING RUB (MENTHOL/SALICYLATE) 1 APPLIC TUBE TOPICAL PRN (22:07)
[2021-06-10] MEDS ORDERED: Polyethylene Glycol 3350 17 GM PACKET PO PRN (22:08)
[2021-06-11] MEDS: Lithium Carbonate ER 450mg TAB PO SCH ×3 (00:55→21:16)
[2021-06-11] MEDS: Vitamin THERAPEUTIC TAB PO SCH (08:25)
[2021-06-11] MEDS: Nicotine PATCH 21 MG/24 HR PATCH TRANSDERM SCH (08:25)
[2021-06-12] MEDS: Lithium Carbonate ER 450mg TAB PO SCH ×3 (01:45→19:03)
[2021-06-12] MEDS: Nicotine PATCH 21 MG/24 HR PATCH TRANSDERM SCH (08:18)
[2021-06-12] MEDS: Vitamin THERAPEUTIC TAB PO SCH (08:19)
[2021-06-12] MEDS: Albuterol HFA INHALER 8 gm MDI INH PRN (08:20)
[2021-06-13] MEDS: Albuterol HFA INHALER 8 gm MDI INH PRN (06:29)
[2021-06-13] MEDS: Nicotine GUM 4MG FRUIT FLAVOR PO PRN (07:42)
[2021-06-13] MEDS: Vitamin THERAPEUTIC TAB PO SCH (07:42)
[2021-06-13] MEDS: Nicotine PATCH 21 MG/24 HR PATCH TRANSDERM SCH (07:43)
[2021-06-13 07:55] LABS: ABS Eosinophils 0.3 10^3/ul (0-0.6); ABS Lymphocytes 1.3 10^3/ul (1.0-4.8); ABS Monocytes 0.6 10^3/ul (0-0.8); Eosinophil % 4.1 %; Hematocrit 36 % (35-47); Hemoglobin 12.2 g/dL (12.0-16.0); Lymphocyte % 18.4 %; Mean Corpuscular HGB Conc 34 g/dL (31-36); Mean Corpuscular Hemoglobin 32 pg (27-31); Mean Corpuscular Volume 92 fL (80-97); Mean Platelet Volume 7.7 fL (7.4-10.4); Platelet Count 338 10^3/uL (150-450); Red Blood Count 3.87 10^6 /uL (3.70-4.87); Red Cell Distribution Width 14 % (10-15); White Blood Count 7.3 10^3/uL (3.5-10.8)
[2021-06-13 08:07] LABS: Anion Gap 4 mmol/L (2-11); Blood Urea Nitrogen 10 mg/dL (6-24); CO2 Carbon Dioxide 26 mmol/L (22-32); Calcium 9.1 mg/dL (8.6-10.3); Chloride 106 mmol/L (101-111); Cholesterol 135 mg/dL; EGFR African American 119.5 (>60); EGFR Non-African American 98.8 (>60); Glucose 91 mg/dL (70-100); HDL Cholesterol 46.9 mg/dL; LDL Cholesterol 69 mg/dL; Potassium 3.8 mmol/L (3.5-5.0); Sodium 136 mmol/L (135-145); Triglycerides 97 mg/dL
[2021-06-13 08:14] LABS: HCG Pregnancy < 0.60 mIU/mL
[2021-06-13 15:06] LABS: Urine Appearance Cloudy; Urine Bilirubin Negative (Negative); Urine Blood 3+ (Negative); Urine Color Yellow; Urine Glucose Negative (Negative); Urine Ketones Negative (Negative); Urine Nitrite Negative (Negative); Urine Protein Negative (Negative); Urine Specific Gravity 1.009 (1.002-1.030); Urine Urobilinogen Negative (Negative)
[2021-06-13 15:17] LABS: Urine Bacteria Absent (Absent); Urine Red Blood Cell 3+(>10/hpf) (Absent); Urine Squamous Epithelial Cell Present (Absent); Urine White Blood Cell 1+(6-10/hpf) (Absent)
[2021-06-13 15:50] LABS: Urine Benzodiazepine Screen None Detected (None Detect); Urine Cannabinoids Screen None Detected (None Detect); Urine Opiates Screen None Detected (None Detect)
[2021-06-13] MEDS: Lithium Carbonate ER 450mg TAB PO SCH (22:11)
[2021-06-13 22:23] LABS: Urine Buprenorphine Screen None Detected (None Detect); Urine Fentanyl Screen None Detected (None Detect); Urine Hydrocodone Screen None Detected (None Detect)
[2021-06-14] MEDS: Nicotine PATCH 21 MG/24 HR PATCH TRANSDERM SCH (10:05)
[2021-06-14] MEDS: Vitamin THERAPEUTIC TAB PO SCH (10:05)
[2021-06-14] MEDS: Lithium Carbonate ER 450mg TAB PO SCH (20:09)
[2021-06-15] MEDS: Vitamin THERAPEUTIC TAB PO SCH (09:58)
[2021-06-15] MEDS: Nicotine PATCH 21 MG/24 HR PATCH TRANSDERM SCH (09:59)
[2021-06-15] MEDS: Albuterol HFA INHALER 8 gm MDI INH PRN (19:17)
[2021-06-15] MEDS: Lithium Carbonate ER 450mg TAB PO SCH (20:32)
[2021-06-16] MEDS: Nicotine PATCH 21 MG/24 HR PATCH TRANSDERM SCH (08:49)
[2021-06-16] MEDS: Vitamin THERAPEUTIC TAB PO SCH (08:50)
[2021-06-16] MEDS: Albuterol HFA INHALER 8 gm MDI INH PRN (11:11)
[2021-06-16] MEDS: Lithium Carbonate ER 450mg TAB PO SCH (21:34)
[2021-06-17] MEDS: Vitamin THERAPEUTIC TAB PO SCH (08:39)
[2021-06-17] MEDS: Albuterol HFA INHALER 8 gm MDI INH PRN ×2 (08:52→18:19)
[2021-06-17] MEDS: Nicotine PATCH 21 MG/24 HR PATCH TRANSDERM SCH (11:59)
[2021-06-17] MEDS: Nicotine GUM 4MG FRUIT FLAVOR PO PRN ×2 (12:03→18:23)
[2021-06-17] MEDS: Lithium Carbonate ER 450mg TAB PO SCH (19:40)
[2021-06-18] MEDS: Nicotine PATCH 21 MG/24 HR PATCH TRANSDERM SCH (07:55)
[2021-06-18] MEDS: Vitamin THERAPEUTIC TAB PO SCH (07:55)
[2021-06-18] MEDS: Nicotine GUM 4MG FRUIT FLAVOR PO PRN (07:56)
[2021-06-19] MEDS: Lithium Carbonate ER 450mg TAB PO SCH ×2 (00:54→20:32)
[2021-06-19] MEDS: Nicotine PATCH 21 MG/24 HR PATCH TRANSDERM SCH (10:09)
[2021-06-19] MEDS: Vitamin THERAPEUTIC TAB PO SCH (10:09)
[2021-06-20] MEDS: Nicotine GUM 4MG FRUIT FLAVOR PO PRN ×3 (03:54→20:12)
[2021-06-20] MEDS: Nicotine PATCH 21 MG/24 HR PATCH TRANSDERM SCH (10:24)
[2021-06-20] MEDS: Vitamin THERAPEUTIC TAB PO SCH (10:24)
[2021-06-20] MEDS: Lithium Carbonate ER 450mg TAB PO SCH (20:12)
[2021-06-20] MEDS ORDERED: Lithium Carbonate ER 450mg TAB PO SCH (21:00)
[2021-06-21] MEDS: Vitamin THERAPEUTIC TAB PO SCH (08:21)
[2021-06-21] MEDS: Nicotine PATCH 21 MG/24 HR PATCH TRANSDERM SCH (08:22)
[2021-06-21] MEDS: Nicotine GUM 4MG FRUIT FLAVOR PO PRN ×5 (08:24→20:20)
[2021-06-21] MEDS: Lithium Carbonate ER 450mg TAB PO SCH (20:20)
[2021-06-22] MEDS: Vitamin THERAPEUTIC TAB PO SCH (08:05)
[2021-06-22] MEDS: Nicotine PATCH 21 MG/24 HR PATCH TRANSDERM SCH (08:05)
[2021-06-22] MEDS: Nicotine GUM 4MG FRUIT FLAVOR PO PRN ×3 (10:27→20:50)
[2021-06-22] MEDS ORDERED: Ondansetron ODT 4 mg TAB 4 MG TAB ONE (11:45)
[2021-06-22] MEDS: Ondansetron ODT 4 mg TAB 4 MG TAB PO PRN (11:55)
[2021-06-22] MEDS: Lithium Carbonate ER 450mg TAB PO SCH (20:22)
[2021-06-23] MEDS: Nicotine PATCH 21 MG/24 HR PATCH TRANSDERM SCH (08:16)
[2021-06-23] MEDS: Vitamin THERAPEUTIC TAB PO SCH (08:16)
[2021-06-23] MEDS: Nicotine GUM 4MG FRUIT FLAVOR PO PRN ×5 (08:18→18:00)
[2021-06-23] MEDS: Albuterol HFA INHALER 8 gm MDI INH PRN (16:36)
[2021-06-23] MEDS: Lithium Carbonate ER 450mg TAB PO SCH (20:13)
[2021-06-24] MEDS: Vitamin THERAPEUTIC TAB PO SCH (09:23)
[2021-06-24] MEDS: Nicotine GUM 4MG FRUIT FLAVOR PO PRN ×3 (09:25→19:28)
[2021-06-24] MEDS: Nicotine PATCH 21 MG/24 HR PATCH TRANSDERM SCH (09:44)
[2021-06-24] MEDS: Lithium Carbonate ER 450mg TAB PO SCH (20:33)
[2021-06-25] MEDS: Vitamin THERAPEUTIC TAB PO SCH (08:05)
[2021-06-25] MEDS: Nicotine PATCH 21 MG/24 HR PATCH TRANSDERM SCH (08:05)
[2021-06-25] MEDS: Nicotine GUM 4MG FRUIT FLAVOR PO PRN ×4 (08:07→19:31)
[2021-06-25] MEDS: Lithium Carbonate ER 450mg TAB PO SCH (19:30)
[2021-06-26] MEDS: Vitamin THERAPEUTIC TAB PO SCH (08:13)
[2021-06-26] MEDS: Nicotine PATCH 21 MG/24 HR PATCH TRANSDERM SCH (08:13)
[2021-06-26] MEDS: Nicotine GUM 4MG FRUIT FLAVOR PO PRN ×4 (08:13→15:24)
[2021-06-26] MEDS: Lithium Carbonate ER 450mg TAB PO SCH (19:50)
[2021-06-27] MEDS: Nicotine PATCH 21 MG/24 HR PATCH TRANSDERM SCH (08:09)
[2021-06-27] MEDS: Vitamin THERAPEUTIC TAB PO SCH (08:09)
[2021-06-27] MEDS: Nicotine GUM 4MG FRUIT FLAVOR PO PRN ×3 (08:09→17:18)
[2021-06-27] MEDS: Lithium Carbonate ER 450mg TAB PO SCH (19:19)
[2021-06-28] MEDS: Vitamin THERAPEUTIC TAB PO SCH (07:46)
[2021-06-28] MEDS: Nicotine PATCH 21 MG/24 HR PATCH TRANSDERM SCH (07:46)
[2021-06-28] MEDS: Nicotine GUM 4MG FRUIT FLAVOR PO PRN ×6 (07:48→23:42)
[2021-06-28] MEDS: Ondansetron ODT 4 mg TAB 4 MG TAB PO PRN (08:21)
[2021-06-28] MEDS: Lithium Carbonate ER 450mg TAB PO SCH (20:33)
[2021-06-29] MEDS: Nicotine GUM 4MG FRUIT FLAVOR PO PRN ×2 (04:50→07:26)
[2021-06-29] MEDS: Nicotine PATCH 21 MG/24 HR PATCH TRANSDERM SCH (08:16)
[2021-06-29] MEDS: Vitamin THERAPEUTIC TAB PO SCH (08:18)
[2021-06-29 08:29] VITALS: BP 112/71
== END 2021-06-29 10:25 | disposition home or self-care (01) | DRG 885 ==
LOC: ED 16:06 → BSU 17:01 → ED 17:34 → BSU 06-14 16:57
PROVIDERS: ADMIT Psychiatry & Neurology Psychiatry; ATTEND Psychiatry & Neurology Psychiatry

== ENCOUNTER 2021-07-06 09:28 | Inpatient (IN) ==
[~2021-07-06 09:28] MED LIST: Haloperidol 5 mg/ml SDV IV/IM 5 MG/ML AMP ONE; LORazepam 2 mg VIAL 1 ml ONE; diPHENhydraMINE IV 50 MG/ML 1 ml VIAL (BENADRYL) ONE
[2021-07-06] MEDS ORDERED: Haloperidol 5 mg/ml SDV IV/IM 5 MG/ML AMP IM ONE (09:33)
[2021-07-06] MEDS ORDERED: diPHENhydraMINE IV 50 MG/ML 1 ml VIAL (BENADRYL) IM ONE (09:33)
[2021-07-06] MEDS ORDERED: Lorazepam PYXIS KEY PRN (09:33)
[2021-07-06] MEDS ORDERED: LORazepam 2 mg VIAL 1 ml IM ONE (09:33)
[2021-07-06 10:44] LABS: Urine Benzodiazepine Screen Presumptive Positive (None Detect); Urine Cannabinoids Screen None Detected (None Detect); Urine Opiates Screen None Detected (None Detect)
[2021-07-06] MEDS ORDERED: risperiDONE-M 1 mg Oradis TAB PO PRN ×2 (11:41→15:01)
[2021-07-06 12:47] LABS: Rapid COVID-19 Molecular Undetected (Undetected)
[2021-07-06] MEDS ORDERED: risperiDONE-M 1 mg Oradis TAB ONE (13:53)
[2021-07-06] MEDS ORDERED: Lithium Carbonate ER 450mg TAB PO SCH (21:00)
[2021-07-06] MEDS: Lithium Carb ER 300 mg TAB(NF) PO SCH (22:20)
[2021-07-07] MEDS: risperiDONE-M 1 mg Oradis TAB PO PRN ×2 (11:04→20:15)
[2021-07-08] MEDS: Lithium Carb ER 300 mg TAB(NF) PO SCH ×2 (05:10→22:15)
[2021-07-08] MEDS: risperiDONE-M 1 mg Oradis TAB PO PRN ×2 (08:30→15:40)
[2021-07-08] MEDS: Al Hydrox/Mg Hydrox/Simet LIQ 30 ML UDC PO PRN (20:47)
[2021-07-09] MEDS: risperiDONE-M 1 mg Oradis TAB PO PRN ×3 (00:03→21:37)
[2021-07-09] MEDS: Nicotine PATCH 21 MG/24 HR PATCH TRANSDERM SCH (12:56)
[2021-07-09] MEDS: Nicotine Lozenge mini 4 MG LOZNG.MINI MT PRN ×3 (12:57→21:40)
[2021-07-09] MEDS: Albuterol HFA INHALER 8 gm MDI INH PRN (13:26)
[2021-07-09] MEDS: Nicotine GUM 4MG FRUIT FLAVOR PO PRN (19:05)
[2021-07-09] MEDS: Lithium Carb ER 300 mg TAB(NF) PO SCH (21:44)
[2021-07-10] MEDS: Albuterol HFA INHALER 8 gm MDI INH PRN (06:48)
[2021-07-10] MEDS: Nicotine Lozenge mini 4 MG LOZNG.MINI MT PRN ×4 (06:49→20:53)
[2021-07-10] MEDS: Nicotine PATCH 21 MG/24 HR PATCH TRANSDERM SCH (07:33)
[2021-07-10] MEDS: risperiDONE-M 1 mg Oradis TAB PO PRN ×2 (07:33→20:50)
[2021-07-10] MEDS: Lithium Carb ER 300 mg TAB(NF) PO SCH (20:48)
[2021-07-10] MEDS: Nicotine GUM 4MG FRUIT FLAVOR PO PRN (23:07)
[2021-07-11] MEDS: Nicotine PATCH 21 MG/24 HR PATCH TRANSDERM SCH (08:56)
[2021-07-11] MEDS: Nicotine Lozenge mini 4 MG LOZNG.MINI MT PRN ×3 (08:59→18:29)
[2021-07-11] MEDS: Albuterol HFA INHALER 8 gm MDI INH PRN ×2 (11:02→19:35)
[2021-07-11] MEDS: risperiDONE-M 1 mg Oradis TAB PO PRN ×2 (14:17→19:38)
[2021-07-11] MEDS: Lithium Carb ER 300 mg TAB(NF) PO SCH (19:44)
[2021-07-12] MEDS: Nicotine PATCH 21 MG/24 HR PATCH TRANSDERM SCH (08:12)
[2021-07-12] MEDS: Nicotine Lozenge mini 4 MG LOZNG.MINI MT PRN ×3 (08:14→20:28)
[2021-07-12] MEDS: risperiDONE-M 1 mg Oradis TAB PO PRN ×2 (08:17→20:29)
[2021-07-12] MEDS: Nicotine GUM 4MG FRUIT FLAVOR PO PRN ×2 (14:12→21:46)
[2021-07-12] MEDS: Lithium Carb ER 300 mg TAB(NF) PO SCH ×2 (15:09→21:10)
[2021-07-13] MEDS: Nicotine Lozenge mini 4 MG LOZNG.MINI MT PRN ×4 (07:25→21:48)
[2021-07-13] MEDS: Nicotine PATCH 21 MG/24 HR PATCH TRANSDERM SCH (07:43)
[2021-07-13] MEDS: risperiDONE-M 1 mg Oradis TAB PO PRN (07:45)
[2021-07-13] MEDS: Nicotine GUM 4MG FRUIT FLAVOR PO PRN ×2 (07:47→20:01)
[2021-07-13] MEDS: Al Hydrox/Mg Hydrox/Simet LIQ 30 ML UDC PO PRN (09:34)
[2021-07-13] MEDS: Albuterol HFA INHALER 8 gm MDI INH PRN ×2 (16:06→16:24)
[2021-07-13] MEDS: Lithium Carb ER 300 mg TAB(NF) PO SCH (20:59)
[2021-07-14] MEDS: Nicotine Lozenge mini 4 MG LOZNG.MINI MT PRN ×7 (06:28→23:20)
[2021-07-14] MEDS: Nicotine PATCH 21 MG/24 HR PATCH TRANSDERM SCH (09:02)
[2021-07-14] MEDS: Albuterol HFA INHALER 8 gm MDI INH PRN ×2 (13:03→20:50)
[2021-07-14] MEDS: Nicotine GUM 4MG FRUIT FLAVOR PO PRN (13:05)
[2021-07-14] MEDS: Lithium Carb ER 300 mg TAB(NF) PO SCH (20:36)
[2021-07-15] MEDS: Nicotine GUM 4MG FRUIT FLAVOR PO PRN ×5 (00:01→20:44)
[2021-07-15] MEDS: Nicotine PATCH 21 MG/24 HR PATCH TRANSDERM SCH (08:35)
[2021-07-15] MEDS: Nicotine Lozenge mini 4 MG LOZNG.MINI MT PRN ×6 (08:37→22:10)
[2021-07-15] MEDS: Lithium Carb ER 300 mg TAB(NF) PO SCH (20:41)
[2021-07-15] MEDS: Albuterol HFA INHALER 8 gm MDI INH PRN (22:09)
[2021-07-16] MEDS: Nicotine PATCH 21 MG/24 HR PATCH TRANSDERM SCH (09:38)
[2021-07-16] MEDS: Nicotine Lozenge mini 4 MG LOZNG.MINI MT PRN ×3 (09:39→19:32)
[2021-07-16] MEDS: Nicotine GUM 4MG FRUIT FLAVOR PO PRN ×3 (11:03→17:57)
[2021-07-16] MEDS: Albuterol HFA INHALER 8 gm MDI INH PRN (13:36)
[2021-07-16] MEDS: Lithium Carb ER 300 mg TAB(NF) PO SCH (19:29)
[2021-07-17 08:00] LABS: ABS Eosinophils 0.3 10^3/ul (0-0.6); ABS Lymphocytes 1.7 10^3/ul (1.0-4.8); ABS Monocytes 0.7 10^3/ul (0-0.8); ABS Neutrophils 3.2 10^3/ul (1.5-7.7); Eosinophil % 4.9 %; Hematocrit 39 % (35-47); Hemoglobin 13.2 g/dL (12.0-16.0); Lymphocyte % 28.2 %; Mean Corpuscular HGB Conc 34 g/dL (31-36); Mean Corpuscular Hemoglobin 32 pg (27-31); Mean Corpuscular Volume 93 fL (80-97); Platelet Count 271 10^3/uL (150-450); Red Blood Count 4.21 10^6 /uL (3.70-4.87); Red Cell Distribution Width 14 % (10-15); White Blood Count 5.9 10^3/uL (3.5-10.8)
[2021-07-17 08:16] LABS: ALT 15 U/L (7-52); AST 16 U/L (13-39); Albumin 4.1 g/dL (3.2-5.2); Albumin/Globulin Ratio 1.5 (1-3); Alkaline Phosphatase 39 U/L (35-149); Anion Gap 3 mmol/L (2-11); Blood Urea Nitrogen 13 mg/dL (6-24); CO2 Carbon Dioxide 29 mmol/L (22-32); Calcium 9.4 mg/dL (8.6-10.3); Chloride 105 mmol/L (101-111); EGFR African American 99.4 (>60); EGFR Non-African American 82.2 (>60); Globulin 2.7 g/dL (2-4); Glucose 91 mg/dL (70-100); Potassium 4.1 mmol/L (3.5-5.0); Sodium 137 mmol/L (135-145); Total Protein 6.8 g/dL (6.4-8.9)
[2021-07-17 08:21] LABS: HCG Pregnancy < 0.60 mIU/mL
[2021-07-17] MEDS: Nicotine PATCH 21 MG/24 HR PATCH TRANSDERM SCH (08:28)
[2021-07-17] MEDS: Nicotine Lozenge mini 4 MG LOZNG.MINI MT PRN ×4 (08:31→19:59)
[2021-07-17] MEDS: Nicotine GUM 4MG FRUIT FLAVOR PO PRN ×2 (09:49→16:18)
[2021-07-17] MEDS: Al Hydrox/Mg Hydrox/Simet LIQ 30 ML UDC PO PRN (16:17)
[2021-07-17] MEDS: Albuterol HFA INHALER 8 gm MDI INH PRN (16:39)
[2021-07-17] MEDS ORDERED: Ondansetron ODT 4 mg TAB 4 MG TAB PO PRN (17:38)
[2021-07-17] MEDS: Lithium Carb ER 300 mg TAB(NF) PO SCH (19:57)
[2021-07-18] MEDS: Nicotine PATCH 21 MG/24 HR PATCH TRANSDERM SCH (09:43)
[2021-07-18] MEDS: Nicotine Lozenge mini 4 MG LOZNG.MINI MT PRN ×3 (09:46→15:16)
[2021-07-18] MEDS: Nicotine GUM 4MG FRUIT FLAVOR PO PRN (11:25)
[2021-07-18] MEDS: Lithium Carb ER 300 mg TAB(NF) PO SCH (21:48)
[2021-07-19] MEDS: Nicotine Lozenge mini 4 MG LOZNG.MINI MT PRN ×5 (09:21→21:37)
[2021-07-19] MEDS: Nicotine PATCH 21 MG/24 HR PATCH TRANSDERM SCH (09:22)
[2021-07-19] MEDS: Nicotine GUM 4MG FRUIT FLAVOR PO PRN ×3 (10:34→19:19)
[2021-07-19] MEDS ORDERED: Glycerin ADULT 2.4 gm SUPP PR ONE (13:00)
[2021-07-19] MEDS: Lithium Carb ER 300 mg TAB(NF) PO SCH (20:57)
[2021-07-20] MEDS: Nicotine Lozenge mini 4 MG LOZNG.MINI MT PRN ×3 (09:06→17:09)
[2021-07-20] MEDS: Nicotine PATCH 21 MG/24 HR PATCH TRANSDERM SCH (09:06)
[2021-07-20] MEDS: Nicotine GUM 4MG FRUIT FLAVOR PO PRN ×2 (11:04→15:37)
[2021-07-20] MEDS: Lithium Carb ER 300 mg TAB(NF) PO SCH (20:09)
[2021-07-21] MEDS: Nicotine PATCH 21 MG/24 HR PATCH TRANSDERM SCH (08:50)
[2021-07-21] MEDS: Nicotine Lozenge mini 4 MG LOZNG.MINI MT PRN ×3 (08:51→18:12)
[2021-07-21] MEDS: Nicotine GUM 4MG FRUIT FLAVOR PO PRN ×2 (10:29→19:43)
[2021-07-21] MEDS: Lithium Carb ER 300 mg TAB(NF) PO SCH (19:42)
[2021-07-22] MEDS: Nicotine PATCH 21 MG/24 HR PATCH TRANSDERM SCH (09:34)
[2021-07-22] MEDS: Nicotine Lozenge mini 4 MG LOZNG.MINI MT PRN ×3 (09:34→19:28)
[2021-07-22] MEDS: Nicotine GUM 4MG FRUIT FLAVOR PO PRN ×3 (10:41→18:43)
[2021-07-22] MEDS: Lithium Carb ER 300 mg TAB(NF) PO SCH (19:41)
[2021-07-23] MEDS: Nicotine Lozenge mini 4 MG LOZNG.MINI MT PRN ×3 (08:33→15:43)
[2021-07-23] MEDS: Nicotine PATCH 21 MG/24 HR PATCH TRANSDERM SCH (08:33)
[2021-07-23] MEDS: Nicotine GUM 4MG FRUIT FLAVOR PO PRN ×3 (09:55→18:04)
[2021-07-23] MEDS: Lithium Carb ER 300 mg TAB(NF) PO SCH (20:07)
[2021-07-24] MEDS: Nicotine GUM 4MG FRUIT FLAVOR PO PRN ×4 (03:58→10:11)
[2021-07-24] MEDS: Nicotine Lozenge mini 4 MG LOZNG.MINI MT PRN ×6 (05:39→19:49)
[2021-07-24] MEDS: Nicotine PATCH 21 MG/24 HR PATCH TRANSDERM SCH (08:13)
[2021-07-24] MEDS ORDERED: Aripiprazole LAUROXIL 1,064 MG/3.9 ML SYRINGE IM ONE (11:00)
[2021-07-24] MEDS: Albuterol HFA INHALER 8 gm MDI INH PRN (17:42)
[2021-07-24] MEDS: Lithium Carb ER 300 mg TAB(NF) PO SCH (19:14)
[2021-07-24] MEDS: Saline NASAL SPRAY 0.65% BTL BOTH NARES PRN (21:19)
[2021-07-24 22:12] LABS: Urine Benzodiazepine Screen None Detected (None Detect); Urine Buprenorphine Screen None Detected (None Detect); Urine Cannabinoids Screen None Detected (None Detect); Urine Fentanyl Screen None Detected (None Detect); Urine Hydrocodone Screen None Detected (None Detect); Urine Opiates Screen None Detected (None Detect)
[2021-07-25] MEDS: Nicotine Lozenge mini 4 MG LOZNG.MINI MT PRN ×4 (04:33→18:33)
[2021-07-25] MEDS: Nicotine PATCH 21 MG/24 HR PATCH TRANSDERM SCH (08:04)
[2021-07-25] MEDS: Nicotine GUM 4MG FRUIT FLAVOR PO PRN ×2 (16:35→18:34)
[2021-07-25] MEDS: Lithium Carb ER 300 mg TAB(NF) PO SCH (19:19)
[2021-07-26] MEDS: Nicotine GUM 4MG FRUIT FLAVOR PO PRN ×4 (05:03→19:02)
[2021-07-26] MEDS: Nicotine PATCH 21 MG/24 HR PATCH TRANSDERM SCH (08:37)
[2021-07-26] MEDS: Nicotine Lozenge mini 4 MG LOZNG.MINI MT PRN ×4 (08:38→20:59)
[2021-07-26] MEDS: Lithium Carb ER 300 mg TAB(NF) PO SCH (19:56)
[2021-07-27] MEDS: Nicotine Lozenge mini 4 MG LOZNG.MINI MT PRN ×2 (08:48→18:26)
[2021-07-27] MEDS: Nicotine PATCH 21 MG/24 HR PATCH TRANSDERM SCH (08:50)
[2021-07-27] MEDS: Nicotine GUM 4MG FRUIT FLAVOR PO PRN ×2 (10:15→19:23)
[2021-07-27] MEDS: Saline NASAL SPRAY 0.65% BTL BOTH NARES PRN (12:10)
[2021-07-27] MEDS: Lithium Carb ER 300 mg TAB(NF) PO SCH (19:22)
[2021-07-28] MEDS: Nicotine PATCH 21 MG/24 HR PATCH TRANSDERM SCH (07:54)
[2021-07-28] MEDS: Nicotine Lozenge mini 4 MG LOZNG.MINI MT PRN ×4 (07:55→19:03)
[2021-07-28] MEDS: Saline NASAL SPRAY 0.65% BTL BOTH NARES PRN ×2 (10:00→19:04)
[2021-07-28] MEDS: Nicotine GUM 4MG FRUIT FLAVOR PO PRN (11:53)
[2021-07-28] MEDS: Al Hydrox/Mg Hydrox/Simet LIQ 30 ML UDC PO PRN (14:35)
[2021-07-28] MEDS: Lithium Carb ER 300 mg TAB(NF) PO SCH (20:45)
[2021-07-29] MEDS: Saline NASAL SPRAY 0.65% BTL BOTH NARES PRN ×2 (06:43→16:30)
[2021-07-29] MEDS: Nicotine PATCH 21 MG/24 HR PATCH TRANSDERM SCH (07:34)
[2021-07-29] MEDS: Nicotine Lozenge mini 4 MG LOZNG.MINI MT PRN ×5 (07:37→18:47)
[2021-07-29] MEDS: Al Hydrox/Mg Hydrox/Simet LIQ 30 ML UDC PO PRN ×2 (09:12→17:42)
[2021-07-29] MEDS: Nicotine GUM 4MG FRUIT FLAVOR PO PRN ×3 (09:13→17:43)
[2021-07-29] MEDS: Lithium Carb ER 300 mg TAB(NF) PO SCH (19:38)
[2021-07-30] MEDS: Nicotine Lozenge mini 4 MG LOZNG.MINI MT PRN ×4 (02:04→22:00)
[2021-07-30] MEDS: Nicotine PATCH 21 MG/24 HR PATCH TRANSDERM SCH (07:44)
[2021-07-30] MEDS: Nicotine GUM 4MG FRUIT FLAVOR PO PRN ×2 (07:48→23:19)
[2021-07-30] MEDS: Al Hydrox/Mg Hydrox/Simet LIQ 30 ML UDC PO PRN (08:07)
[2021-07-30] MEDS: Saline NASAL SPRAY 0.65% BTL BOTH NARES PRN ×2 (11:53→23:19)
[2021-07-30] MEDS: Lithium Carb ER 300 mg TAB(NF) PO SCH (21:58)
[2021-07-31] MEDS: Nicotine PATCH 21 MG/24 HR PATCH TRANSDERM SCH (07:49)
[2021-07-31] MEDS: Al Hydrox/Mg Hydrox/Simet LIQ 30 ML UDC PO PRN (08:53)
[2021-07-31] MEDS: Saline NASAL SPRAY 0.65% BTL BOTH NARES PRN ×2 (08:53→18:51)
[2021-07-31] MEDS: Nicotine Lozenge mini 4 MG LOZNG.MINI MT PRN ×3 (10:44→18:52)
[2021-07-31] MEDS: Lithium Carb ER 300 mg TAB(NF) PO SCH (20:16)
[2021-08-01] MEDS: Nicotine PATCH 21 MG/24 HR PATCH TRANSDERM SCH (08:42)
[2021-08-01] MEDS: Saline NASAL SPRAY 0.65% BTL BOTH NARES PRN (08:45)
[2021-08-01] MEDS: Nicotine Lozenge mini 4 MG LOZNG.MINI MT PRN ×2 (08:56→11:14)
[2021-08-01] MEDS: Nicotine GUM 4MG FRUIT FLAVOR PO PRN (10:10)
[2021-08-01 10:40] LABS: Rapid COVID-19 Molecular Undetected (Undetected)
[2021-08-01 11:06] VITALS: BP 104/64
[2021-08-01] MEDS ORDERED: Saline NASAL SPRAY 0.65% BTL BOTH NARES SCH (14:00)
== END 2021-08-01 12:17 | DRG 885 ==
LOC: ED 09:28 → BSU 11:39 → ED 13:15 → BSU 07-09 18:09
PROVIDERS: ADMIT Psychiatry & Neurology Psychiatry; ATTEND Psychiatry & Neurology Psychiatry

== ENCOUNTER 2022-09-21 12:59 | Inpatient (IN) ==
[2022-09-21] MEDS ORDERED: Haloperidol 5 mg/ml SDV IV/IM 5 MG/ML AMP IM ONE (15:15)
[2022-09-21] MEDS ORDERED: Haloperidol 5 mg/ml SDV IV/IM 5 MG/ML AMP ONE (15:15)
[2022-09-22 08:54] LABS: Urine Appearance Cloudy; Urine Bilirubin Negative (Negative); Urine Blood Negative (Negative); Urine Color Yellow; Urine Glucose Negative (Negative); Urine Ketones Trace (Negative); Urine Nitrite Negative (Negative); Urine Protein Negative (Negative); Urine Specific Gravity 1.018 (1.002-1.030); Urine Urobilinogen Negative (Negative)
[2022-09-22 09:07] LABS: Urine Benzodiazepine Screen None Detected (None Detect); Urine Buprenorphine Screen None Detected (None Detect); Urine Cannabinoids Screen None Detected (None Detect); Urine Fentanyl Screen None Detected (None Detect); Urine Hydrocodone Screen None Detected (None Detect); Urine Opiates Screen None Detected (None Detect)
[2022-09-22] MEDS ORDERED: Nicotine PATCH 21 MG/24 HR PATCH TRANSDERM ONE (09:31)
[2022-09-22] MEDS ORDERED: Albuterol HFA INHALER 8 gm MDI INH PRN (11:47)
[2022-09-22] MEDS: Nicotine GUM 2MG FRUIT FLAVOR PO PRN ×5 (12:54→21:37)
[2022-09-22] MEDS ORDERED: Nicotine GUM 2MG FRUIT FLAVOR PO ONE (12:54)
[2022-09-23] MEDS: Nicotine PATCH 21 MG/24 HR PATCH TRANSDERM SCH (07:21)
[2022-09-23] MEDS: Nicotine GUM 2MG FRUIT FLAVOR PO PRN ×3 (07:21→21:59)
[2022-09-23 08:53] LABS: HDL Cholesterol 39.8 mg/dL
[2022-09-24] MEDS: Nicotine PATCH 21 MG/24 HR PATCH TRANSDERM SCH (07:37)
[2022-09-24] MEDS: Nicotine GUM 2MG FRUIT FLAVOR PO PRN ×6 (07:37→20:23)
[2022-09-24] MEDS ORDERED: OLANZapine 10 mg TAB*ODT PO PRN (08:43)
[2022-09-24] MEDS: OLANZapine 5 mg TAB *ODT PO PRN (19:03)
[2022-09-25] MEDS: OLANZapine 5 mg TAB *ODT PO PRN (07:37)
[2022-09-25] MEDS: Nicotine PATCH 21 MG/24 HR PATCH TRANSDERM SCH (07:37)
[2022-09-25] MEDS: Nicotine GUM 2MG FRUIT FLAVOR PO PRN ×7 (07:37→22:17)
[2022-09-26] MEDS: Nicotine GUM 2MG FRUIT FLAVOR PO PRN ×5 (01:45→20:16)
[2022-09-26] MEDS: Nicotine PATCH 21 MG/24 HR PATCH TRANSDERM SCH (08:07)
[2022-09-27] MEDS: Nicotine GUM 2MG FRUIT FLAVOR PO PRN ×5 (01:35→18:35)
[2022-09-27] MEDS: Nicotine PATCH 21 MG/24 HR PATCH TRANSDERM SCH (09:25)
[2022-09-27] MEDS ORDERED: guaiFENesin 100 mg/5 ml LIQ unit dose cup PO PRN (10:17)
[2022-09-27] MEDS ORDERED: Albuterol HFA INHALER 8 gm MDI INH PRN (10:18)
[2022-09-27] MEDS: Nicotine Lozenge mini 2 MG LOZNG.MINI MT PRN ×4 (10:33→19:55)
[2022-09-27] MEDS: OLANZapine 10 mg TAB*ODT PO PRN ×2 (13:48→21:38)
[2022-09-27] MEDS: Al Hydrox/Mg Hydrox/Simet LIQ 30 ML UDC PO PRN (20:52)
[2022-09-28] MEDS: Nicotine Lozenge mini 2 MG LOZNG.MINI MT PRN ×6 (08:38→22:29)
[2022-09-28] MEDS: Nicotine PATCH 21 MG/24 HR PATCH TRANSDERM SCH (08:40)
[2022-09-28] MEDS: Nicotine GUM 2MG FRUIT FLAVOR PO PRN ×5 (09:58→21:02)
[2022-09-28] MEDS: OLANZapine 10 mg TAB*ODT PO PRN (13:17)
[2022-09-29] MEDS: Nicotine PATCH 21 MG/24 HR PATCH TRANSDERM SCH (09:16)
[2022-09-29] MEDS: Nicotine GUM 2MG FRUIT FLAVOR PO PRN ×4 (09:17→19:36)
[2022-09-29] MEDS: Nicotine Lozenge mini 2 MG LOZNG.MINI MT PRN ×3 (09:18→20:28)
[2022-09-29] MEDS: OLANZapine 10 mg TAB*ODT PO PRN (14:17)
[2022-09-29] MEDS: Al Hydrox/Mg Hydrox/Simet LIQ 30 ML UDC PO PRN (23:30)
[2022-09-30] MEDS: Nicotine Lozenge mini 2 MG LOZNG.MINI MT PRN ×6 (00:12→21:37)
[2022-09-30] MEDS: Nicotine PATCH 21 MG/24 HR PATCH TRANSDERM SCH (08:18)
[2022-09-30] MEDS: Nicotine GUM 2MG FRUIT FLAVOR PO PRN ×3 (08:55→16:38)
[2022-10-01] MEDS: Nicotine PATCH 21 MG/24 HR PATCH TRANSDERM SCH (09:08)
[2022-10-01] MEDS: Nicotine Lozenge mini 2 MG LOZNG.MINI MT PRN ×5 (09:15→21:57)
[2022-10-01] MEDS ORDERED: Paliperidone SUSTENNA 234 MG/1.5 ML IM ONE (10:05)
[2022-10-01] MEDS: Nicotine GUM 2MG FRUIT FLAVOR PO PRN ×4 (10:41→21:05)
[2022-10-01 19:58] VITALS: BP 114/98
[2022-10-01] MEDS: OLANZapine 10 mg TAB*ODT PO PRN (22:44)
[2022-10-02] MEDS: Nicotine PATCH 21 MG/24 HR PATCH TRANSDERM SCH (10:24)
[2022-10-02] MEDS: Nicotine Lozenge mini 2 MG LOZNG.MINI MT PRN (11:35)
== END 2022-10-02 12:25 | disposition home or self-care (01) | DRG 885 ==
LOC: ED 12:59 → BSU 09-22 11:12
PROVIDERS: ADMIT Psychiatry & Neurology Addiction Psychiatry; ATTEND Psychiatry & Neurology Addiction Psychiatry

== ENCOUNTER 2024-02-09 23:38 | Inpatient (IN) ==
[2024-02-10 00:45] LABS: ABS Basophils 0.1 10^3/uL (0.0-0.1); ABS Eosinophils 0.4 10^3/uL (0.0-0.5); ABS Lymphocytes 3.5 10^3/uL (1.0-4.8); ABS Monocytes 0.9 10^3/uL (0.0-0.9); ABS Neutrophils 6.8 10^3/uL (1.5-7.6); ABS Nucleated RBC 0.01 10^3/ul; Hematocrit 38.7 % (35-45); Hemoglobin 13.3 g/dL (11.5-14.3); Lymphocyte % 30.2 %; Mean Corpuscular Hgb Conc 34.4 g/dL (31-36); Mean Corpuscular Volume 90.1 fL (80-97); Mean Platelet Volume 7.8 fL (7.5-11.2); Nucleated Red Blood Cells % 0.1 %/100WBC (0.0-0.8); Platelet Count 345 10^3/uL (150-450); Red Blood Count 4.29 10^6/uL (3.63-4.92); Red Cell Distribution Width 13.7 % (12-17); White Blood Count 11.7 10^3/uL (3.8-11.8)
[2024-02-10 00:46] LABS: Urine Appearance Clear; Urine Bilirubin Negative (Negative); Urine Blood Negative (Negative); Urine Color Light-Yellow; Urine Glucose Negative (Negative); Urine Ketones Negative (Negative); Urine Nitrite Negative (Negative); Urine Protein Negative (Negative); Urine Specific Gravity 1.021 (1.002-1.030); Urine Urobilinogen Negative (Negative); Urine pH 6.5 (5.0-8.0)
[2024-02-10] MEDS: Nicotine GUM 2MG FRUIT FLAVOR PO PRN ×2 (00:53→02:37)
[2024-02-10] MEDS: Al Hydrox/Mg Hydrox/Simet LIQ 30 ML UDC PO ONE (00:53)
[2024-02-10 01:01] LABS: Urine Benzodiazepine Screen None Detected (None Detect); Urine Cannabinoids Screen None Detected (None Detect); Urine Opiates Screen None Detected (None Detect)
[2024-02-10 01:33] LABS: ALT 17 U/L (7-52); AST 14 U/L (13-39); Acetaminophen < 15 mcg/mL; Albumin 4.1 g/dL (3.2-5.2); Albumin/Globulin Ratio 1.4 (1-3); Alcohol, S < 13 mg/dL (<13); Alkaline Phosphatase 82 U/L (35-149); Anion Gap 11 mmol/L (2-16); Blood Urea Nitrogen 9 mg/dL (6-24); CO2 Carbon Dioxide 26 mmol/L (22-32); Calcium 9.4 mg/dL (8.6-10.3); Chloride 100 mmol/L (101-111); Creatinine, Serum 0.85 mg/dL (0.51-0.95); Globulin 2.9 g/dL (2-4); Glucose 137 mg/dL (70-100); Potassium 3.9 mmol/L (3.5-5.0); Salicylate < 2.50 mg/dL (<30); Sodium 137 mmol/L (135-145); Total Bilirubin 0.2 mg/dL (0.2-1.0); eGFR CKD-EPI 96.8 (>60)
[2024-02-10 01:40] LABS: HCG Pregnancy < 0.60 mIU/mL
[2024-02-10 01:48] LABS: TSH Ultra Thyroid Stim Horm 3.12 mcIU/mL (0.34-5.60)
[2024-02-10 08:21] LABS: HDL Cholesterol 33.4 mg/dL
[2024-02-10] MEDS: Nicotine PATCH 21 MG/24 HR PATCH TRANSDERM SCH (08:57)
[2024-02-10] MEDS: Vitamin THERAPEUTIC TAB PO SCH (09:03)
[2024-02-10] MEDS: NORETHINDRONE E ESTRADIOL IRON PO SCH (11:43)
[2024-02-10] MEDS: Al Hydrox/Mg Hydrox/Simet LIQ 30 ML UDC PO PRN (14:00)
[2024-02-11 08:32] VITALS: BP 147/103
[2024-02-11] MEDS: Paliperidone SUSTENNA 234 MG/1.5 ML IM ONE (12:45)
== END 2024-02-12 11:30 | disposition home or self-care (01) | DRG 885 ==
LOC: ED 23:38 → EDHOLD 02-10 01:26 → BSU 02-10 01:45
PROVIDERS: ADMIT Psychiatry & Neurology Psychiatry; ATTEND Psychiatry & Neurology Psychiatry